=== PATIENT | male | born 1990 | race Caucasian/White ===

== ENCOUNTER → 2019-10-09 11:06 | Outpatient (BNVA) | payer MEDICARE, MEDICAID, SELFPAY | PROVIDERS: Family Provider Nurse Practitioner Family; PCP Nurse Practitioner Family; Visit Provider Nurse Practitioner Family | DX: E78.5 Hyperlipidemia, unspecified (principal); K64.9 Unspecified hemorrhoids | CPT/HCPCS: 80061 ==

== ENCOUNTER → 2019-10-11 10:42 | Outpatient (BNVA) | payer MEDICARE, MEDICAID, SELFPAY | PROVIDERS: Family Provider Nurse Practitioner Family; PCP Nurse Practitioner Family; Visit Provider Nurse Practitioner Psychiatric/Mental Health | DX: F63.81 Intermittent explosive disorder (principal); F79 Unspecified intellectual disabilities; F17.200 Nicotine dependence, unspecified, uncomplicated | CPT/HCPCS: 99214; 99215 ==

== ENCOUNTER → 2019-12-31 08:11 | Outpatient (BNVA) | payer MEDICARE, MEDICAID, SELFPAY | PROVIDERS: Family Provider Nurse Practitioner Family; Visit Provider Nurse Practitioner Psychiatric/Mental Health | DX: F63.81 Intermittent explosive disorder (principal); F79 Unspecified intellectual disabilities; F17.200 Nicotine dependence, unspecified, uncomplicated | CPT/HCPCS: 99212 ==

== ENCOUNTER → 2020-02-06 08:53 | Outpatient (BNVA) | payer MEDICARE, MEDICAID, SELFPAY | PROVIDERS: Family Provider Nurse Practitioner Family; PCP Nurse Practitioner Family; Visit Provider Specialist | DX: G40.309 Generalized idiopathic epilepsy and epileptic syndromes, not intractable, without status epilepticus (principal); F17.210 Nicotine dependence, cigarettes, uncomplicated | CPT/HCPCS: 99213 ==

== ENCOUNTER → 2020-04-07 08:01 | Outpatient (BNVA) | payer MEDICARE, MEDICAID, SELFPAY | PROVIDERS: Family Provider Nurse Practitioner Family; PCP Nurse Practitioner Family; Visit Provider Nurse Practitioner Psychiatric/Mental Health | DX: F79 Unspecified intellectual disabilities (principal); F63.81 Intermittent explosive disorder; F17.200 Nicotine dependence, unspecified, uncomplicated | CPT/HCPCS: 99212 ==

== ENCOUNTER → 2020-04-11 10:49 | Outpatient (BNVA) | payer MEDICARE, MEDICAID, SELFPAY | PROVIDERS: Family Provider Nurse Practitioner Family; PCP Nurse Practitioner Family; Visit Provider Nurse Practitioner | DX: E78.5 Hyperlipidemia, unspecified (principal) | CPT/HCPCS: 80053; 80061 ==

== ENCOUNTER → 2020-06-03 09:29 | Outpatient (BNVA) | payer MEDICARE, MEDICAID, SELFPAY | PROVIDERS: Family Provider Nurse Practitioner Family; PCP Nurse Practitioner Family; Visit Provider Nurse Practitioner Psychiatric/Mental Health | DX: F63.81 Intermittent explosive disorder (principal); F79 Unspecified intellectual disabilities; F17.200 Nicotine dependence, unspecified, uncomplicated | CPT/HCPCS: 99212 ==

== ENCOUNTER → 2020-06-11 11:54 | Outpatient (BNVA) | payer MEDICARE, MEDICAID, SELFPAY | PROVIDERS: Family Provider Nurse Practitioner Family; PCP Nurse Practitioner Family; Visit Provider Nurse Practitioner | DX: R76.11 Nonspecific reaction to tuberculin skin test without active tuberculosis (principal); E78.5 Hyperlipidemia, unspecified; Z11.3 Encounter for screening for infections with a predominantly sexual mode of transmission | CPT/HCPCS: 71046; 80053; 81000; 85025; 86592 ==

== ENCOUNTER → 2020-08-05 07:43 | Outpatient (BNVA) | payer MEDICARE, MEDICAID, SELFPAY | PROVIDERS: Family Provider Nurse Practitioner Family; PCP Nurse Practitioner Family; Visit Provider Nurse Practitioner Psychiatric/Mental Health | DX: F63.81 Intermittent explosive disorder (principal); F79 Unspecified intellectual disabilities | CPT/HCPCS: G0463 ==

== ENCOUNTER 2020-10-13 00:58 | Day surgery (SDC) | payer MEDICARE, MEDICAID, SELFPAY ==
[2020-10-13] VITALS (11 sets, daily range): BP systolic 106–136; BP diastolic 63–82; PULSE 62–86; RESP 14–23; TEMP 36.3–36.6; O2SAT 95–100; BMI 24.4
--- NOTE | 2020-10-13 01:51 | XRR_ITS ---
PROCEDURE INFORMATION: Exam: XR Abdomen, 1 View Exam date and time: 10/13/2020 1:59 AM Age: 30 years old Clinical indication: Other: Rectal foreign body; Patient HX: PT slipped and fell and something went up his rectum TECHNIQUE: Imaging protocol: XR of the abdomen. Views: Frontal supine view of the abdomen. 1 View. COMPARISON: No relevant prior studies available. FINDINGS: Gastrointestinal tract: No dilated bowel loops identified to suggest obstruction. There is a cylindrical radiolucent foreign body projecting over the sacrum just left of midline measuring roughly 12.9 cm in length and 3.1 cm transversely. This is compatible with a rectal foreign body. Bones/joints: Visualized bones are unremarkable. XR/XR KUB portable [id number] IMPRESSION: 1. There is a cylindrical radiolucent foreign body projecting over the sacrum just left of midline. This is compatible with a rectal foreign body.
--- NOTE | 2020-10-13 02:37 | PC.NURSE ---
Provider at bedside
[2020-10-13] MEDS: lactated ringers 1,000 ML 100 ML IV (02:40)
[2020-10-13 02:42] LABS: Basophils # 0.1 10^3/uL (0.0-0.1); Basophils % 0.3 %; Eosinophils # 0.1 10^3/uL (0.0-0.8); Eosinophils % 0.4 %; Hemoglobin 14.6 g/dL (11.7-16.6); Lymphocytes # 2.1 10^3/uL (0.8-4.8); Lymphocytes % 11.5 %; Mean Corpuscular HGB Conc 33.2 g/dL (30.0-36.0); Mean Corpuscular Hemoglobin 32.4 pg (28.0-34.0); Mean Corpuscular Volume 97.6 fL (80-94); Mean Platelet Volume 10.4 fL (7.4-10.4); Monocytes # 1.1 10^3/uL (0.2-0.9); Neutrophils # 15.01 10^3/uL (1.8-7.7); Neutrophils % 81.4 %; Nucleated Red Blood Cells % 0 %; Platelet Count 215 10^3/cmm (130-400); Red Blood Count 4.51 10^6/uL (4.1-5.3); Red Cell Distribution Width 12.6 % (12.1-15.1); White Blood Count 18.4 10^3/uL (4.0-10.0)
[2020-10-13 03:05] LABS: Alanine Aminotransferase 37 U/L (0-41); Albumin Level 4.1 g/dL (3.5-5.2); Alkaline Phosphatase 88 IU/L (40-130); Anion Gap 14.8 (5-19); Aspartate Amino Transferase 40 U/L (0-40); Blood Urea Nitrogen 12 mg/dL (6-20); Calcium 9.3 mg/dL (8.5-10.5); Carbon Dioxide 23 mmol/L (22-29); Chloride 104 mmol/L (98-107); Globulin 2.2 g/dL (1.3-4.6); Glomerular Filtration Rate 87.2 mL/min (90-130); Glucose 112 mg/dL (65-115); Osmolality Calculated 287 mOsm/kg (285-295); Potassium 3.8 mmol/L (3.5-5.1); Sodium 138 mmol/L (136-145); Total Bilirubin 0.2 mg/dL (0.15-1.2); Total Protein 6.3 g/dL (6.6-8.7)
--- NOTE | 2020-10-13 03:45 | PC.NURSE ---
pt aware of waiting on surgery this AM for removal of FB in rectum
--- NOTE | 2020-10-13 03:52 | ED_ITS ---
HPI - General Adult General: Chief complaint: General Medical Stated complaint: foreign object in rectum Time Seen by Provider: 10/13/20 01:26 History of Present Illness: HPI narrative: 30-year-old male who was apparently walking across his home naked this evening. He slipped and fell and something ended up in my bomb . He states that it may have been a toy of one of the children living at the home. He complains of rectal pain. No overt belly pain. No vomiting. No rectal bleeding. Onset (ago): hour(s) Location: buttocks Radiation: non-radiation Severity: moderate Quality: aching Pain Consistency: constant Relieving factors: none Exacerbating factors: none Associated symptoms: Deny chest pain, cough, dyspnea, fevers/chills, nausea, palpitations or vomiting Review of Systems Const: Denies: fever(s) or chills Card: Denies: chest pain or palpitations Resp: Denies: dyspnea, productive cough or non-productive cough GI: Denies: nausea or vomiting : Denies: flank pain or difficulty urinating Neuro: Denies: sensory changes PFSH ED PFSH: Medical History (Updated 10/13/20 @ 04:02 by Tereso Silveira DO) Acid reflux Bipolar affective, mixed Dyslipidemia Encounter for herb and vitamin supplement management Environmental and seasonal allergies Generalized epilepsy GERD (gastroesophageal reflux disease) Hemorrhoids Nonspecific reaction to tuberculin skin test without active tuberculosis Seborrheic dermatitis of scalp Surgical History Status post colonoscopy Family History Denies family history of Anesthesia complication Bleeding disorder Social History Smoking and tobacco status: current every day smoker cigarettes Packs smoked per day: 1 Years cigarettes smoked: 20 Second hand smoke exposure: Yes Smoking risk assessment/counseling performed?: Yes Alcohol intake: never Desire information about alcohol rehabilitation?: No Counseling given: No Desire information about substance/drug rehabilitation?: No Counseling given: No Adopted: Yes Caregiver/support person: Yes Lives independently: No Household members: family and caregiver Housing: House Marital status: Single Number of children: 0 Highest education level completed: 9th Grade Education level details: Till 9th Grade Current occupational status: unemployed Pets and animals: Yes History of recent travel: No Current gender identity: Male Physical Exam Const: COMMON NORMALS: no acute distress, average body habitus and patient oriented x3 Chest: COMMONS NORMALS: normal inspection of the chest Resp: COMMON NORMALS: normal respiratory effort and No use of accessory muscles Cardio: COMMON NORMALS: regular rate and regular rhythm RATE: regular rate RHYTHM: regular rhythm GI: COMMON NORMALS: Normal to inspection, nondistended, normoactive bowel sounds present, Soft to palpation and non-tender PALPATION: Yes Soft to palpation RECTAL EXAM: Yes visual inspection normal and Yes abnormal sphincter tone decreased OTHER: NO foreign body identified on rectal Neuro: COMMON NORMALS: patient oriented x3 Course Consultations: Consultation #1: Ashutosh Vital Signs: Vital signs: Vital Signs Temperature 97.5 F L 10/13/20 01:08 Pulse Rate 62 10/13/20 03:48 Respiratory Rate 18 10/13/20 03:48 Blood Pressure 106/63 10/13/20 03:48 Pulse Oximetry 100 10/13/20 03:48 MDM - General Adult MDM Narrative: Medical decision making narrative: 30-year-old male with a rectal foreign body. X-ray reveals an nonmetallic foreign body present. Not palpable on digital rectal exam. His white blood cell count is elevated at 18.4. His belly is nontender at this point. His other labs are benign. Spoke with surgery on-call. He will take the patient to surgery in a couple of hours. Lab Data: Labs: Lab Results 10/13/20 10/13/20 Range/Units 02:25 02:25 WBC 18.4 H (4.0-10.0) 10^3/ uL RBC 4.51 (4.1-5.3) 10^6/u L Hgb 14.6 (11.7-16.6) g/dL Hct 44.0 (42.0-52.0) % MCV 97.6 H (80-94) fL MCH 32.4 (28.0-34.0) pg MCHC 33.2 (30.0-36.0) g/dL RDW 12.6 (12.1-15.1) % Plt Count 215 (130-400) 10^3/c mm MPV 10.4 (7.4-10.4) fL Neut % (Auto) 81.4 % Lymph % (Auto) 11.5 % [place] % (Auto) 6.0 % Eos % (Auto) 0.4 % Baso % (Auto) 0.3 % Neut # (Auto) 15.01 H (1.8-7.7) 10^3/u L Lymph # (Auto) 2.1 (0.8-4.8) 10^3/u L Andrews # (Auto) 1.1 H (0.2-0.9) 10^3/u L Eos # (Auto) 0.1 (0.0-0.8) 10^3/u L Baso # (Auto) 0.1 (0.0-0.1) 10^3/u L Nucleated RBC % (a uto) 0 % Nucleated RBCs # 0.0 /100WBC Sodium 138 (136-145) mmol/L Potassium 3.8 (3.5-5.1) mmol/L Chloride 104 (98-107) mmol/L Carbon Dioxide 23 (22-29) mmol/L Anion Gap 14.8 (5-19) BUN 12 (6-20) mg/dL Creatinine 1.0 (0.7-1.2) mg/dL GFR Calculation 87.2 L (90-130) mL/min Glucose 112 (65-115) mg/dL Calculated Osmolal ity 287 (285-295) mOsm/k g Calcium 9.3 (8.5-10.5) mg/dL Total Bilirubin 0.2 (0.15-1.2) mg/dL AST 40 (0-40) U/L ALT 37 (0-41) U/L Alkaline Phosphata se 88 (40-130) IU/L Total Protein 6.3 L (6.6-8.7) g/dL Albumin 4.1 (3.5-5.2) g/dL Globulin 2.2 (1.3-4.6) g/dL Discharge Plan Discharge Patient Disposition: Placed in Observation Clinical Impression: Foreign body anus/rectum Qualifiers: Encounter type: initial encounter Qualified Code(s): T18.5XXA - Foreign body in anus and rectum, initial encounter Coding Level of Care Code 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
--- NOTE | 2020-10-13 05:50 | ANES.PREANE2 ---
Pre-Anesthetic Assessment Pre-Anesthetic Assessment: Height/Weight: Height 1.83 m Weight 81.647 kg Temp Pulse Resp BP Pulse Ox 97.5 F L 66 23 H 118/73 96 10/13/20 01:08 10/13/20 05:43 10/13/20 05:43 10/13/20 05:43 10/13/20 05:43 Preop Diagnosis: foreign body rectum Proposed Procedure: Operation Date: 10/13/20 06:15 Proposed Procedures p Foreign Body Removal(Not Applicable) - Jerzy Boykin MD Familial anesthetic complications: No problems Last intake: Intake Last Liquid Date 10/13/20 Last Liquid Time 18:00 Last Solid Date 10/12/20 Last Solid Time 18:00 Social: Social History: Tobacco Exam: Pre-Anes Outpt Exam: alert, oriented x 3, clear to auscultation bilaterally and regular rate & rhythm Airway: Cervical ROM: WNL MP: 3 Dentition: Other (missing) GI: GI: GERD Neuropsych: Neuropsych: Seizure Comments: Last seizure years ago - epilepsy. Took medicine yesterday at 7 pm Anesthetic Plan: ASA status: 2E Anesthesia: General Risk of > 500 ml blood loss (7ml/kg in children): No Meds/Allergies Current Medications: Current Medications Generic Name Dose Route Start Last Admin Trade Name Freq PRN Reason Stop Dose Admin Lactated Ringer's 1,000 mls @ 100 m ls/hr 10/13/20 02:15 10/13/20 02:40 Lactated Ringers IV 100 mls/hr .Q10H REJI Administration PFSH Anesthesia PFSH: Medical History (Updated 10/13/20 @ 04:02 by Tereso Silveira DO) Acid reflux Bipolar affective, mixed Dyslipidemia Encounter for herb and vitamin supplement management Environmental and seasonal allergies Generalized epilepsy GERD (gastroesophageal reflux disease) Hemorrhoids Nonspecific reaction to tuberculin skin test without active tuberculosis Seborrheic dermatitis of scalp Surgical History Status post colonoscopy Family History Denies family history of Anesthesia complication Bleeding disorder Social History Smoking and tobacco status: current every day smoker cigarettes Packs smoked per day: 1 Years cigarettes smoked: 20 Second hand smoke exposure: Yes Smoking risk assessment/counseling performed?: Yes Alcohol intake: never Desire information about alcohol rehabilitation?: No Counseling given: No Desire information about substance/drug rehabilitation?: No Counseling given: No Adopted: Yes Caregiver/support person: Yes Lives independently: No Household members: family and caregiver Housing: House Marital status: Single Number of children: 0 Highest education level completed: 9th Grade Education level details: Till 9th Grade Current occupational status: unemployed Pets and animals: Yes History of recent travel: No Current gender identity: Male Data Anesthesia CBC & Chem 7: 10/13/20 02:25 10/13/20 02:25 Other Labs: Laboratory Results - last 48 hr 10/13/20 10/13/20 02:25 02:25 WBC 18.4 H RBC 4.51 Hgb 14.6 Hct 44.0 MCV 97.6 H MCH 32.4 MCHC 33.2 RDW 12.6 Plt Count 215 MPV 10.4 Neut % (Auto) 81.4 Lymph % (Auto) 11.5 [place] % (Auto) 6.0 Eos % (Auto) 0.4 Baso % (Auto) 0.3 Neut # (Auto) 15.01 H Lymph # (Auto) 2.1 [place] # (Auto) 1.1 H Eos # (Auto) 0.1 Baso # (Auto) 0.1 Nucleated RBC % (auto) 0 Nucleated RBCs # 0.0 Sodium 138 Potassium 3.8 Chloride 104 Carbon Dioxide 23 Anion Gap 14.8 BUN 12 Creatinine 1.0 GFR Calculation 87.2 L Glucose 112 Calculated Osmolality 287 Calcium 9.3 Total Bilirubin 0.2 AST 40 ALT 37 Alkaline Phosphatase 88 Total Protein 6.3 L Albumin 4.1 Globulin 2.2 Cardiac Studies: No Data to Display
[2020-10-13] MEDS: sodium chloride 0.9% 1,000 ML 30 ML IV (06:11)
--- NOTE | 2020-10-13 06:20 | PM.HP ---
Providers/Chief Complaint Primary Care Provider: JORGE Hightower Chief Complaint: foreign object in rectum History of Present Illness Marc Romero is a 30 year old male who presented to the ER last night stating that he slipped and fell at his house at home and landed on one of the toys and subsequently developed severe rectal pain. Patient denies any abdominal pain, bleeding per rectum. The pain is now improved, does not radiate, no aggravating or relieving factors. An attempt was made in the ER to remove the foreign body which was unsuccessful. Review of Systems General: Reports: 10 or more systems reviewed and unremarkable except in HPI and below Medications/Allergies Home Medications Medication Instructions Recorded Confirmed Last Taken Type acetaminophen 500 mg tablet 1,000 mg PO Q6H PRN 10/09/19 07/04/20 Unknown History hydrocortisone 2.5 % topical cream 1 applic TOPICAL DAILY PRN gm 10/09/19 07/04/20 Unknown History ibuprofen 400 mg tablet 400 mg PO Q6H PRN 10/09/19 07/04/20 Unknown History lactulose 10 gram/15 mL (15 mL) 10 gm PO DAILY PRN #750 ml 02/12/20 07/04/20 Unknown Rx oral solution docusate sodium 100 mg capsule 100 mg PO BID #60 cap 06/11/20 07/04/20 Unknown Rx famotidine 20 mg tablet 20 mg PO BID #60 tab 06/11/20 07/04/20 Unknown Rx fluticasone propionate 50 1 spray INTRANASAL DAILY PRN #15.8 06/11/20 07/04/20 Unknown Rx mcg/actuation nasal ml spray,suspension ketoconazole 2 % shampoo 1 applic TOPICAL Q14D PRN #120 ml 06/11/20 07/04/20 Unknown Rx loratadine 10 mg tablet 10 mg PO DAILY #30 tab 06/11/20 07/04/20 Unknown Rx pravastatin 20 mg tablet 20 mg PO DAILY #30 tab 06/11/20 07/04/20 Unknown Rx multivitamin 1 tab PO QAM #30 tab 06/28/20 07/04/20 Unknown Rx doxycycline hyclate 100 mg capsule 100 mg PO BID #10 cap 07/04/20 07/04/20 Unknown Rx benztropine 1 mg tablet 1 mg PO BID #60 tab 08/05/20 08/05/20 Unknown Rx risperidone 1 mg tablet 1 mg PO .Every morning #30 tab 08/05/20 08/05/20 Unknown Rx risperidone 2 mg tablet 2 mg PO .Nightly #30 tab 08/05/20 08/05/20 Unknown Rx trazodone 50 mg tablet 50 mg PO .hs #30 tab 08/05/20 08/05/20 Unknown Rx lacosamide 200 mg tablet 200 mg PO BID #60 tab 08/07/20 Unknown Rx brompheniramine-phenylephrine 1 5 ml PO Q6H PRN #118 ml 10/05/20 Unknown Rx mg-2.5 mg/5 mL oral solution Allergies Allergy/AdvReac Type Severity Reaction Status Date / Time adhesive tape Allergy ALGY-Rash Verified 10/13/20 01:14 aripiprazole [From Abilify] Allergy ALGY-Hives Verified 10/13/20 01:14 PFSH Acute PFSH: Medical History (Updated 10/13/20 @ 06:21 by Jerzy Boykin MD) Acid reflux Bipolar affective, mixed Dyslipidemia Generalized epilepsy GERD (gastroesophageal reflux disease) Hemorrhoids Seborrheic dermatitis of scalp Surgical History Status post colonoscopy Family History Denies family history of Anesthesia complication Bleeding disorder Social History Smoking and tobacco status: current every day smoker cigarettes Packs smoked per day: 1 Years cigarettes smoked: 20 Second hand smoke exposure: Yes Smoking risk assessment/counseling performed?: Yes Alcohol intake: never Desire information about alcohol rehabilitation?: No Counseling given: No Desire information about substance/drug rehabilitation?: No Counseling given: No Adopted: Yes Caregiver/support person: Yes Lives independently: No Household members: family and caregiver Housing: House Marital status: Single Number of children: 0 Highest education level completed: 9th Grade Education level details: Till 9th Grade Current occupational status: unemployed Pets and animals: Yes History of recent travel: No Current gender identity: Male Vitals/I&O/Wt Last Vital Signs Temp 98 F 10/13/20 05:55 Pulse 66 10/13/20 05:55 Resp 18 10/13/20 05:55 BP 135/82 10/13/20 05:55 Pulse Ox 99 10/13/20 05:55 10/12/20 10/12/20 10/13/20 14:59 22:59 06:59 Intake Total 400 / 400 Balance 400 / 400 Weight last 48 hrs Weight 180 lb Physical Exam Narrative: EXAM NARRATIVE: HEENT: Normocephalic Eye: Sclera /conjunctiva normal Abdomen: Soft to palpation Neurological: Oriented to place person and time Skin: Intact, no lesions appreciated on gross exam Data : 10/13/20 02:25 10/13/20 02:25 A&P Assessment and plan (1) Foreign body anus/rectum: 1-year-old male with a foreign body per rectum, patient is currently hemodynamically stable and noted to peritonitis Plan for exam under anesthesia for removal of foreign body, possible laparotomy, possible ostomy Procedure, risks, benefits and alternatives have been discussed with the patient who wishes to proceed with surgery. 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
--- NOTE | 2020-10-13 06:40 | PM.OP ---
Operative Report Date of procedure: October 13, 2020 Pre-op Diagnosis: foreign body rectum Post-op Diagnosis: 15 cm plastic foreign body Procedure Done: Removal of foreign body from rectum Pathology: none sent Surgeon: Jerzy Boykin Anesthesia: General Condition: stable Disposition: PACU Procedure: The patient was taken to the operating room and intubated under general anesthesia and placed in the lithotomy position. On digital rectal exam, the foreign body could be palpated and suprapubic pressure was applied and the 15 cm long foreign body was removed without any difficulty. There is no evidence of bleeding noted. The patient was extubated and transferred to recovery room in stable condition.
--- NOTE | 2020-10-13 08:14 | SUR.PHASEI ---
[id number]onda Nielsen, court appointed guardian, notified of urgent procedure.
--- NOTE | 2020-10-13 15:39 | ANE.PACU2 ---
Inpatient post-anesthesia follow up: Airway intact: Yes Vital signs: Temperature 97.8 F Pulse Rate [Monito r] 86 Pulse Rate 77 Respiratory Rate 17 Blood Pressure [Le ft Arm] 124/73 Blood Pressure 124/77 Pulse Oximetry 97 Oxygen Delivery Me thod Room Air Oxygen Flow Rate 8 Fraction of Inspir ed Oxygen Hydration adequate: Yes Nausea and vomiting: No Pain level: 2 Mental status: Baseline
== END 2020-10-13 08:30 | disposition home or self-care (01) ==
LOC: ER 05:48 → OR 05:49
PROVIDERS: Emergency Provider Emergency Medicine; PCP Nurse Practitioner Family; Visit Provider Surgery
PROC: (CPT 45999; principal; 2020-10-13 06:15)
DX: T18.5XXA Foreign body in anus and rectum, initial encounter (principal); K21.9 Gastro-esophageal reflux disease without esophagitis; E78.5 Hyperlipidemia, unspecified; F31.9 Bipolar disorder, unspecified
CPT/HCPCS: 45999; 12345; 74018; 80053; 85025; 99283; J1100; J2250; J2405; J2704; J3010; J7030

== ENCOUNTER → 2020-10-30 10:12 | Outpatient (BNVA) | payer MEDICARE, MEDICAID, SELFPAY | PROVIDERS: Family Provider Nurse Practitioner Family; PCP Nurse Practitioner Family; Visit Provider Nurse Practitioner Psychiatric/Mental Health | DX: F63.81 Intermittent explosive disorder (principal); F79 Unspecified intellectual disabilities | CPT/HCPCS: 99213 ==

== ENCOUNTER → 2020-11-25 16:55 | Outpatient (BNVA) | payer MEDICARE, MEDICAID, SELFPAY | PROVIDERS: Family Provider Nurse Practitioner Family; PCP Nurse Practitioner Family; Visit Provider Nurse Practitioner | DX: E78.5 Hyperlipidemia, unspecified (principal); J30.89 Other allergic rhinitis; L21.9 Seborrheic dermatitis, unspecified; K21.9 Gastro-esophageal reflux disease without esophagitis; K64.9 Unspecified hemorrhoids | CPT/HCPCS: 80053; 80061; 85025 ==

== ENCOUNTER → 2020-12-08 07:39 | Outpatient (BNVA) | payer MEDICARE, MEDICAID, SELFPAY | PROVIDERS: Family Provider Nurse Practitioner Family; PCP Nurse Practitioner Family; Visit Provider Nurse Practitioner Psychiatric/Mental Health | DX: F63.81 Intermittent explosive disorder (principal); F79 Unspecified intellectual disabilities | CPT/HCPCS: 99213 ==

== ENCOUNTER → 2021-02-02 09:44 | Outpatient (BNVA) | payer MEDICARE, MEDICAID, SELFPAY | PROVIDERS: Family Provider Nurse Practitioner Family; PCP Nurse Practitioner Family; Visit Provider Specialist | DX: G40.309 Generalized idiopathic epilepsy and epileptic syndromes, not intractable, without status epilepticus (principal); F63.81 Intermittent explosive disorder; F79 Unspecified intellectual disabilities; F17.210 Nicotine dependence, cigarettes, uncomplicated | CPT/HCPCS: 99213 ==

== ENCOUNTER → 2021-03-02 08:32 | Outpatient (BNVA) | payer MEDICARE, MEDICAID, SELFPAY | PROVIDERS: Family Provider Nurse Practitioner Family; PCP Nurse Practitioner Family; Visit Provider Nurse Practitioner Psychiatric/Mental Health | DX: F63.81 Intermittent explosive disorder (principal); G40.309 Generalized idiopathic epilepsy and epileptic syndromes, not intractable, without status epilepticus; F17.200 Nicotine dependence, unspecified, uncomplicated; F79 Unspecified intellectual disabilities | CPT/HCPCS: 99213 ==

== ENCOUNTER 2021-04-06 16:18 | Emergency (ER) | payer MEDICARE, MEDICAID, SELFPAY ==
[2021-04-06 16:35] VITALS: BP 122/75; PULSE 91; RESP 16; TEMP 36.9; O2SAT 98; BMI 24.4
--- NOTE | 2021-04-06 19:25 | ED_ITS ---
HPI - Wound/Laceration General: Chief Complaint: Wound/Laceration Stated Complaint: LACERATION, CUT WITH KNIFE Time Seen by Provider: 04/06/21 19:20 History of Present Illness: HPI narrative: Patient is a 30-year-old male who comes to the ED with a laceration to right wrist. Patient says he was cutting down some tree limbs and accidentally cut through the limb and the knife cut his right wrist. He was seen first at [facility] and they cleaned out wound and sent him here. Patient said he is up-to-date on his tetanus. Associated symptoms: Denies chills, fever(s), nausea or vomiting Review of Systems Const: Denies: fever(s), chills or fatigue Eyes: Denies: change in vision or eye discomfort ENMT: Denies: throat pain, odynophagia, nasal discharge or nasal congestion Card: Denies: chest pain, palpitations, edema, swelling of feet/ankles, dyspnea on exertion or orthopnea Resp: Denies: dyspnea, productive cough or non-productive cough GI: Denies: abdominal pain, nausea, vomiting, diarrhea, constipation or hematochezia : Denies: flank pain, difficulty urinating, dysuria or hematuria Musc: Denies: neck pain, back pain or extremity swelling Skin/Breast: Reports: new lesions (Laceration to right wrist.); Denies: rash Neuro: Denies: headache(s), numbness in extremities or weakness in extremities PFS ED PFSH: Medical History Acid reflux Bipolar affective, mixed Dyslipidemia Generalized epilepsy GERD (gastroesophageal reflux disease) H/O retained foreign body fully removed (10/13/20) FB rectum Hemorrhoids Seborrheic dermatitis of scalp Surgical History Status post colonoscopy Family History Denies family history of Anesthesia complication Bleeding disorder Social History Smoking and tobacco status: current every day smoker cigarettes Packs smoked per day: 1 Years cigarettes smoked: 20 Second hand smoke exposure: Yes Smoking risk assessment/counseling performed?: Yes Alcohol intake: never Desire information about alcohol rehabilitation?: No Counseling given: No Desire information about substance/drug rehabilitation?: No Counseling given: No Adopted: Yes Caregiver/support person: Yes Lives independently: No Household members: family and caregiver Housing: House Marital status: Single Number of children: 0 Highest education level completed: 9th Grade Education level details: Till 9th Grade Current occupational status: unemployed Pets and animals: Yes History of recent travel: No Current gender identity: Male Physical Exam Const: COMMON NORMALS: no acute distress, patient oriented x3 and alert GENERAL APPEARANCE: cooperative and comfortable HENMT: COMMON NORMALS: normocephalic HEAD & SCALP: normocephalic MOUTH: Normal oral and palatal mucosa present THROAT: posterior oropharynx normal and uvula midline Neck/C-Spine: COMMON NORMALS: supple GENERAL: Yes normal visual inspection Resp: COMMON NORMALS: normal respiratory effort, No retractions, No use of accessory muscles and clear to auscultation bilaterally AUSCULTATION: clear to auscultation bilaterally Cardio: COMMON NORMALS: regular rate, regular rhythm, S1 normal heart sound present, S2 normal heart sound present, No gallops present (Cardio), No clicks present (Cardio), No murmurs present (Cardio) and Peripheral pulses 2+ throughout RATE: regular rate RHYTHM: regular rhythm HEART SOUNDS: S1 normal heart sound present and S2 normal heart sound present PERIPHERAL PULSES: Peripheral pulses 2+ throughout GI: COMMON NORMALS: Normal to inspection, nondistended, normoactive bowel sounds present, Soft to palpation, non-tender and no masses PALPATION: Yes Soft to palpation : COMMON NORMALS: Yes no CVA tenderness BLADDER/KIDNEY EXAM: Yes no CVA tenderness Back/Pelvis: COMMON NORMALS: no CVA tenderness Extremity: COMMON NORMALS: full ROM NARRATIVE EXTREMITY EXAM: Anterior aspect of right wrist?3 cm superficial laceration and is in a V shape. No active bleeding. No foreign body or contaminants seen. No erythema or purulent drainage noted. Patient has full motion in right fingers, hand and wrist. Neurovascular intact. GENERAL: Yes normal exam except as noted Neuro: COMMON NORMALS: patient oriented x3 and moves all extremities SENSORIUM/ORIENTATION: Yes alert Skin: NARRATIVE SKIN EXAM: 3 cm superficial laceration on anterior aspect of right wrist. It is V-shaped and there is no active bleeding or foreign body or contaminants seen. GENERAL SKIN EXAM: dry skin Procedures Laceration Laceration 1: Site: hand (palm and wrist) Side (If applicable): right Size (cm): 3 Description: irregular (v shaped) and clean Depth: simple, single layer Local Anesthetic: lidocaine 1% and with epi Amount of anesthesia used (mL): 10 Pre-repair: irrigated extensively (With normal saline and skin cleaned with alcohol swab.) Skin layer closed with: nylon Size (cm): 4-0 Number of sutures: 14 Technique: simple, interrupted Course Vital Signs: Vital signs: Vital Signs Temperature 98.4 F 04/06/21 16:35 Pulse Rate 74 04/06/21 20:58 Respiratory Rate 16 04/06/21 20:58 Blood Pressure 124/88 04/06/21 20:58 Pulse Oximetry 99 04/06/21 20:58 MDM - Wound/Laceration MDM Narrative: Medical decision making narrative: Patient 30-year-old male comes to the ED with laceration to right wrist. Patient was first seen at his [facility] and they cleaned out laceration and sent him here to the ED for further evaluation. Patient is up-to-date on his tetanus. Laceration was caused by him cutting down a branch and the knife slipped off the branch and cut his right wrist. He has approximately 3 cm laceration that is V-shaped on the anterior aspect of right wrist. He has full range of motion and wrist, hand and fingers. Neurovascular tact. Laceration was irrigated extensively with normal saline and skin was cleaned with alcohol swab. X-ray of right wrist showed no acute findings or foreign bodies noted. Local lidocaine 1% with epi was used and 14 sutures were placed to close laceration. Patient was put on a prophylactic dose of cephalexin and discharged home. He was told to have his sutures reevaluated for removal in about 10 days. Patient was instructed on laceration/suture care. Wound care return ED precautions given. Patient understood and agreed with plan. Imaging Data^: Xray Ortho: Attestation: I personally reviewed and interpreted this imaging study as follows: Radiologist's impression: [address] [address] XRay Report Signed Patient: Marc Romero Unit #: [id number] : 1990 Age/Sex: 30 / M ADM Date: 04/06/21 Loc: ER Room/Bed: Attending Dr: Ordering Provider/Ordering MD: Edgar Fine Date of Service: 04/06/21 Procedure(s): XR wrist RT min 3V* 87152 Accession Number(s): [id number] Report Number: [id number] PROCEDURE INFORMATION: Exam: XR Right Wrist Exam date and time: 04/06/2021 7:25 PM Age: 30 years old Clinical indication: Injury or trauma; Injury date: 04/06/2021; Injury details: Lac to right wrist w/ knife while cutting limbs; Patient HX: Anterior right wrist laceration; Additional info: Laceration to wrist TECHNIQUE: Imaging protocol: XR Right wrist. Views: 3 or more views. COMPARISON: No relevant prior studies available. FINDINGS: Bones/joints: Normal. Soft tissues: Normal. XR/XR wrist RT min 3V* 18615 IMPRESSION: No acute findings. Dictated By: Roberth Zaragoza Signed By: Roberth Zaragoza Signed Date/Time: 04/06/212052 DD/ 51 Discharge Plan Discharge Patient Disposition: Home Clinical Impression: Laceration Condition: Stable Prescriptions: New cephalexin 500 mg capsule 500 mg PO Q6H 4 Days Qty: 16 RF: 0 No Action acetaminophen 500 mg tablet 1,000 mg PO Q6H PRNRF: 0 Vimpat 200 mg tablet 200 mg PO BID Qty: 60 RF: 5 pravastatin 20 mg tablet 20 mg PO DAILY Qty: 30 RF: 5 loratadine 10 mg tablet 10 mg PO DAILY Qty: 30 RF: 5 ketoconazole 2 % shampoo 1 applic TOPICAL Q14D PRN (Reason: itchy dry skin) Qty: 120 RF: 5 fluticasone propionate 50 mcg/actuation spray,suspension 1 spray INTRANASAL DAILY PRN (Reason: nasal congestion) Qty: 15.8 RF: 5 famotidine 20 mg tablet 20 mg PO BID Qty: 60 RF: 5 carbamide peroxide [Debrox] 6.5 % drops 5 drp otic (ear) DAILY Qty: 30 RF: 0 benztropine 1 mg tablet 1 mg PO BID Qty: 60 RF: 2 lactulose 10 gram/15 mL (15 mL) solution 10 gm PO DAILY PRN (Reason: constipation) Qty: 750 RF: 3 multivitamin [Tab-A-Justen] Tablet 1 tab PO QAM Qty: 30 RF: 11 Dimetapp Cold-Allergy (PE) 1-2.5 mg/5 mL solution 5 ml PO Q6H PRN (Reason: nasal congestion) Qty: 118 RF: 5 docusate sodium [DOK] 100 mg capsule 100 mg PO DAILY Qty: 30 RF: 3 risperidone 1 mg tablet 1 mg PO BID Qty: 90 RF: 1 ibuprofen 400 mg tablet See Rx Instructions .ROUTE .COMPLEX Qty: 56 RF: 0 hydrocortisone 2.5 % cream 1 applic TOPICAL DAILY PRN (Reason: apply for rectal pain) Qty: 30 RF: 2 clindamycin phosphate 1 % swab 1 applic topical BID Qty: 60 RF: 5 trazodone 50 mg tablet 50 mg PO DAILY Qty: 30 RF: 2 Discharge Orders: Discharge ED (Routine); Ordered 04/06/21 Ordered By: Edgar Fine Referrals: Eduarda Uriarte FNP-C [Primary Care Provider] - Discharge Diet: Regular Discharge Activity: Increase activity as tolerated and Limit activity as instructed Patient Instructions: Suture Care (ED), Laceration (ED) Activity Restrictions/Additional Instructions: Take full course of antibiotics as prescribed. Keep laceration site clean and dry for the next 48 hours. Then after that you can clean and re-bandage daily. Watch for signs of infection such as redness, warmth, increased tenderness and puslike drainage. If you see the signs of infection return to the ED, urgent care or PCP for reevaluation. call your PCP to schedule a follow-up appointment for reevaluation and suture removal in about 10 days. Continue taking all home meds. Follow discharge plans as discussed. You can return to the ED if symptoms worsen. 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
[2021-04-06] MEDS: cephALEXin 500 mg Capsule PO (19:36)
[2021-04-06 20:58] VITALS: BP 124/88; PULSE 74; RESP 16; O2SAT 99
== END 2021-04-06 20:59 | disposition home or self-care (01) ==
PROVIDERS: Emergency Provider Physician Assistant; PCP Nurse Practitioner Family
DX: S61.511A Laceration without foreign body of right wrist, initial encounter (principal); E78.5 Hyperlipidemia, unspecified; F17.210 Nicotine dependence, cigarettes, uncomplicated; W26.0XXA Contact with knife, initial encounter
CPT/HCPCS: 12002; 73110; 99283

== ENCOUNTER → 2021-05-25 07:48 | Outpatient (BNVA) | payer MEDICARE, MEDICAID, SELFPAY | PROVIDERS: PCP Nurse Practitioner Family; Visit Provider Nurse Practitioner Psychiatric/Mental Health | DX: F63.81 Intermittent explosive disorder (principal); G40.309 Generalized idiopathic epilepsy and epileptic syndromes, not intractable, without status epilepticus; F17.200 Nicotine dependence, unspecified, uncomplicated; F79 Unspecified intellectual disabilities | CPT/HCPCS: 99214 ==

== ENCOUNTER → 2021-06-15 16:02 | Outpatient (BNVA) | payer MEDICARE, MEDICAID, SELFPAY | PROVIDERS: PCP Nurse Practitioner Family; Visit Provider Nurse Practitioner | DX: Z11.1 Encounter for screening for respiratory tuberculosis (principal); K64.9 Unspecified hemorrhoids; K21.9 Gastro-esophageal reflux disease without esophagitis; L21.9 Seborrheic dermatitis, unspecified; J30.89 Other allergic rhinitis; E78.5 Hyperlipidemia, unspecified; M79.10 Myalgia, unspecified site; F63.81 Intermittent explosive disorder; F79 Unspecified intellectual disabilities; F17.200 Nicotine dependence, unspecified, uncomplicated | CPT/HCPCS: 71046; 80053; 80061; 85025 ==

== ENCOUNTER → 2021-06-25 15:34 | Outpatient (BNVA) | payer MEDICARE, MEDICAID, SELFPAY | PROVIDERS: PCP Nurse Practitioner Family; Visit Provider Nurse Practitioner | DX: E78.5 Hyperlipidemia, unspecified (principal); Z71.89 Other specified counseling | CPT/HCPCS: 81000 ==

== ENCOUNTER → 2021-09-03 08:58 | Outpatient (BNVA) | payer MEDICARE, MEDICAID, SELFPAY | PROVIDERS: PCP Nurse Practitioner Family; Visit Provider Nurse Practitioner Psychiatric/Mental Health | DX: F79 Unspecified intellectual disabilities (principal); F63.81 Intermittent explosive disorder; F17.200 Nicotine dependence, unspecified, uncomplicated | CPT/HCPCS: 99213 ==

== ENCOUNTER → 2021-11-26 14:40 | Outpatient (BNVA) | payer MEDICARE, MEDICAID, SELFPAY | PROVIDERS: PCP Nurse Practitioner Family; Visit Provider Nurse Practitioner Psychiatric/Mental Health | DX: F63.81 Intermittent explosive disorder (principal); F79 Unspecified intellectual disabilities; F17.200 Nicotine dependence, unspecified, uncomplicated | CPT/HCPCS: 99213 ==

== ENCOUNTER → 2021-12-17 14:21 | Outpatient (BNVA) | payer MEDICARE, MEDICAID, SELFPAY | PROVIDERS: PCP Nurse Practitioner Family; Visit Provider Nurse Practitioner Family | DX: Z71.89 Other specified counseling (principal); J30.89 Other allergic rhinitis; L21.9 Seborrheic dermatitis, unspecified; K64.9 Unspecified hemorrhoids; M79.10 Myalgia, unspecified site; E78.5 Hyperlipidemia, unspecified; K21.9 Gastro-esophageal reflux disease without esophagitis; F63.81 Intermittent explosive disorder; F79 Unspecified intellectual disabilities; F17.200 Nicotine dependence, unspecified, uncomplicated | CPT/HCPCS: 80053; 80061; 84443; 85025 ==

== ENCOUNTER → 2022-02-02 10:16 | Outpatient (BNVA) | payer MEDICARE, MEDICAID, SELFPAY | PROVIDERS: PCP Nurse Practitioner Family; Visit Provider Specialist | DX: G40.309 Generalized idiopathic epilepsy and epileptic syndromes, not intractable, without status epilepticus (principal); F63.81 Intermittent explosive disorder; F31.60 Bipolar disorder, current episode mixed, unspecified; F17.210 Nicotine dependence, cigarettes, uncomplicated | CPT/HCPCS: 99213; 99214 ==

== ENCOUNTER 2022-02-26 23:11 | Emergency (ER) | payer MEDICARE, MEDICAID, SELFPAY ==
[2022-02-26 23:16] VITALS: BP 139/82; PULSE 86; RESP 17; TEMP 37; O2SAT 97; BMI 24.4
--- NOTE | 2022-02-27 00:23 | W.ED.PSYCHS ---
HPI - Psych General: Chief Complaint: Psychiatric Symptoms Stated Complaint: PSYCH EVAL Time Seen by Provider: 02/26/22 23:37 Source: patient History of Present Illness: 31-year-old male presenting from a halfway type environment. Evidently, he made threats to staff there after becoming angry. This threat was to shoot staff. He] he had a pistol in his possession. On my interview, he denies any homicidal or suicidal thoughts. He states I just got mad and said some things I should not have . He has a history of developmental delay. He also has a history of bipolar disorder. complaint: other Onset (ago): hour(s) Duration: resolved prior to arrival History of same: Yes Relieving factors: none Exacerbating factors: other Associated symptoms: Deny auditory hallucinations, visual hallucinations, homicidal ideation or suicidal ideation Treatments prior to arrival: none Review of Systems Const: Denies: fever(s) Card: Denies: chest pain Resp: Denies: dyspnea GI: Denies: abdominal pain, nausea, vomiting or diarrhea Psych: Denies: visual hallucinations, auditory hallucinations, suicidal ideation or homicidal ideation [facility] ED PFSH: Medical History Acid reflux Bipolar affective, mixed Dyslipidemia Generalized epilepsy GERD (gastroesophageal reflux disease) H/O retained foreign body fully removed (10/13/20) FB rectum Hemorrhoids Seborrheic dermatitis of scalp Surgical History Status post colonoscopy Family History Denies family history of Anesthesia complication Bleeding disorder Social History Smoking and tobacco status: current every day smoker cigarettes Packs smoked per day: 0.75 Years cigarettes smoked: 24 and smokeless tobacco Smokeless tobacco user: chewing tobacco Smokeless tobacco details: 2-3 weeks Second hand smoke exposure: Yes Smoking risk assessment/counseling performed?: Yes Alcohol intake: never Desire information about alcohol rehabilitation?: No Counseling given: No Desire information about substance/drug rehabilitation?: No Counseling given: No Adopted: Yes Caregiver/support person: Yes Lives independently: No Household members: family and caregiver Housing: House Marital status: Single Number of children: 0 Highest education level completed: 9th Grade Education level details: Till 9th Grade Current occupational status: employed Current occupation: [employer] Pets and animals: Yes History of recent travel: No Current gender identity: Male Physical Exam Const: COMMON NORMALS: alert GENERAL APPEARANCE: cooperative, comfortable and well kempt; not ill appearing and not frail appearing HENMT: COMMON NORMALS: normocephalic, atraumatic and Normal external nose present HEAD & SCALP: normocephalic and atraumatic FACE & SINUS: normal facial exam and face symmetric NOSE: Normal external nose present Eye: COMMON NORMALS: Equal, round and reactive pupils present and EOMs intact bilaterally PUPIL: Yes Equal, round and reactive pupils present Neck/C-Spine: GENERAL: Yes trachea midline Chest: CHEST: Yes Symmetrical chest wall rise Resp: COMMON NORMALS: normal respiratory effort, No retractions, No use of accessory muscles and clear to auscultation bilaterally AUSCULTATION: clear to auscultation bilaterally Cardio: COMMON NORMALS: regular rate and regular rhythm RATE: regular rate RHYTHM: regular rhythm GI: COMMON NORMALS: Normal to inspection, nondistended, normoactive bowel sounds present Extremity: COMMON NORMALS: no pedal edema Neuro: BALDEMRA COMA SCALE: document GCS findings Baldemar coma scale eye opening: Spontaneous [place] coma scale verbal response: Orientated [place]ar coma scale motor response: Obey commands Baldemar coma scale total score: 15 SENSORIUM/ORIENTATION: Yes alert SPEECH: speech normal GAIT: Yes Normal gait present Psych: COMMON NORMALS: Normal thought process present and speech normal APPEARANCE: Yes well kempt ATTITUDE: Yes calm ACTIVITY/MOTOR BEHAVIOR: Yes appropriate eye contact SPEECH: Yes normal speech THOUGHT PROCESS: Normal thought process present THOUGHT CONTENT: No Suicidality present and No Homicidality present ATTENTION/CONCENTRATION: Yes attention grossly intact and Yes concentration grossly intact MEMORY/COGNITION: Yes memory grossly intact and Yes cognition grossly intact INSIGHT: Limited insight present (Psych) Course Consultations: Consultation #1: kalen Time: 00:30 Vital Signs: Vital signs: Vital Signs Temperature 98.6 F 02/26/22 23:16 Pulse Rate 78 02/27/22 01:46 Respiratory Rate 14 02/27/22 01:46 Blood Pressure 135/82 02/27/22 01:46 Pulse Oximetry 98 02/27/22 01:46 MDM - Psych Medical Decision Making Patient appears medically stable. He is not intoxicated. He is calm, cooperative, and remorseful. I spoke with psychiatry. While enforcement did write an affidavit that he had made statements about a pistol. They searched at home, and did not find pistol. Psychiatry recommendations are to increase risperidone dosage slightly, and allow him back to his normal environment. He notes that they are not likely to see this type of behavior in the neuropsychiatric unit, as it is not his home environment. They see no need for for psychiatric admission. We will make changes to risperidone dosage according to psychiatry's recommendations, and allow back to his home environment. Discharge Plan Discharge Patient Disposition: Home Clinical Impression: Intermittent explosive disorder Condition: Stable Prescriptions: New risperidone 2 mg tablet See Rx Instructions .ROUTE .COMPLEX Qty: 45 0RF Rx Instructions: 2 mg (1 tab) PO in AM 2mg(1 tab)PO at night 1mg (1/2) tab at 3pm Discontinued risperidone [Risperdal] 2 mg tablet See Rx Instructions PO .COMPLEX Qty: 60 0RF Rx Instructions: Take one tab in the morning, half a tab at 3pm, and half a tab at night, No Action Vimpat 200 mg tablet 200 mg PO BID Qty: 60 5RF trazodone 50 mg tablet 50 mg PO DAILY Qty: 30 2RF Rx Instructions: Take one tablet daily at bedtime benztropine 1 mg tablet 1 mg PO BID Qty: 60 2RF Rx Instructions: take one tablet by mouth twice daily multivitamin Tablet 1 tab PO QAM Qty: 30 11RF loratadine 10 mg tablet 10 mg PO DAILY Qty: 30 5RF lactulose 10 gram/15 mL (15 mL) solution 10 g PO DAILY PRN (Reason: constipation) Qty: 750 3RF ketoconazole 2 % shampoo 1 applic TOPICAL Q14D PRN (Reason: itchy dry skin) Qty: 120 5RF hydrocortisone 2.5 % cream 1 applic TOPICAL DAILY PRN (Reason: apply for rectal pain) Qty: 30 2RF acetaminophen 500 mg tablet 500 mg PO Q6H PRN (Reason: fever or pain) Qty: 60 5RF rosuvastatin [Crestor] 40 mg tablet 40 mg PO DAILY Qty: 30 5RF omeprazole 40 mg capsule,delayed release(DR/EC) 40 mg PO DAILY Qty: 30 5RF Dimetapp DM Cold-Cough (PE) 1-2.5-5 mg/5 mL solution 5 ml PO .every 6 hours PRN (Reason: allergy symptoms and cough) Qty: 237 2RF Rx Instructions: to replace Dimetapp cold and allergy Discharge Orders: Discharge ED (Routine); Ordered 02/27/22 Ordered By: Tereso Silveira Referrals: Eduarda Uriarte FNP-[facility] [Primary Care Provider] - 4-7 days Discharge Diet: Advance as tolerated Patient Instructions: Bipolar Disorder (ED) Activity Restrictions/Additional Instructions: Psychiatry was consulted from the ER. They suggested this medication change, and outpatient follow-up. Return for worsening mental status, any other concerns. 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
--- NOTE | 2022-02-27 00:57 | PC.NURSE ---
Call to Steven @[phone]- called Steven Lawrence for patient at [phone] and let her know that a consult was done with [facility]. Pt will be given a script for med change and will follow up outpt. Ronda is aware that she will need to have someone picking table worker the patient.
[2022-02-27 01:43] VITALS: BP 135/82; PULSE 78; RESP 14; O2SAT 98
[2022-02-27 01:46] VITALS: BP 135/82; PULSE 78; RESP 14; O2SAT 98
== END 2022-02-27 03:41 | disposition home or self-care (01) ==
PROVIDERS: Emergency Provider Emergency Medicine; PCP Nurse Practitioner Family
DX: F63.81 Intermittent explosive disorder (principal); R62.50 Unspecified lack of expected normal physiological development in childhood; F31.9 Bipolar disorder, unspecified
CPT/HCPCS: 99283

== ENCOUNTER → 2022-03-01 14:05 | Outpatient (BNVA) | payer MEDICARE, MEDICAID, SELFPAY | PROVIDERS: PCP Nurse Practitioner Family; Visit Provider Nurse Practitioner Psychiatric/Mental Health | DX: F79 Unspecified intellectual disabilities (principal); F63.81 Intermittent explosive disorder; F17.200 Nicotine dependence, unspecified, uncomplicated | CPT/HCPCS: 99214 ==

== ENCOUNTER 2022-05-13 19:11 | Emergency (ER) | payer MEDICARE, MEDICAID, SELFPAY ==
--- NOTE | 2022-05-13 19:13 | XRR_ITS ---
PROCEDURE INFORMATION: Exam: XR Left Hand Exam date and time: 05/13/2022 7:25 PM Age: 32 years old Clinical indication: Pain; Hand; Left; Additional info: L hand pain TECHNIQUE: Imaging protocol: Radiologic exam of the Left hand. Views: 3 or more views. COMPARISON: No relevant prior studies available. FINDINGS: Bones/joints: Normal. Soft tissues: Normal. XR/XR hand LT min 3V* [id number] IMPRESSION: No acute findings.
--- NOTE | 2022-05-13 19:13 | XRR_ITS ---
PROCEDURE INFORMATION: Exam: XR Left Wrist Exam date and time: 05/13/2022 7:25 PM Age: 32 years old Clinical indication: Pain; Wrist; Left; Additional info: L hand pain TECHNIQUE: Imaging protocol: Radiologic exam of the Left wrist. Views: 1 or 2 views. COMPARISON: No relevant prior studies available. FINDINGS: Bones/joints: Normal. Soft tissues: Normal. XR/XR wrist LT 2V [id number] IMPRESSION: No acute findings.
[2022-05-13 19:18] VITALS: BP 154/94; PULSE 70; RESP 16; TEMP 36.8; O2SAT 98; BMI 24.0
[2022-05-13] MEDS: HYDROcodone-acetaminophen 5-325 mg Tablet 1 TAB PO (19:35)
--- NOTE | 2022-05-13 19:37 | ED_ITS ---
HPI - Fall General: Chief Complaint: Fall Stated Complaint: Left hand/wrist injury Time Seen by Provider: 05/13/22 19:20 Source: patient Mode of arrival: ambulatory Limitations: no limitations History of Present Illness: 32-year-old male states that he had a ground-level fall just prior to arrival he landed on his left wrist he has left wrist pain since the fall. States pain is sharp rates it a 5 out of 10 worse with movement improved with rest denies any other injuries denies hitting his head. Associated symptoms-after fall: Denies abdominal pain, chest pain or headache(s) Review of Systems Const: Denies: fever(s), chills, body aches or change in appetite Eyes: Denies: blurry vision or eye discomfort ENMT: Denies: throat pain or dental pain Card: Denies: chest pain Resp: Denies: dyspnea GI: Denies: abdominal pain, nausea, vomiting or diarrhea : Denies: dysuria Musc: Reports: extremity pain Skin/Breast: Denies: rash Neuro: Denies: headache(s) Psych: Denies: depression Miguel Angel/Lymph: Denies: easy bruising All/Imm: Denies: urticaria PFSH ED PFSH: Medical History Acid reflux Bipolar affective, mixed Bronchitis Dyslipidemia Generalized epilepsy GERD (gastroesophageal reflux disease) H/O retained foreign body fully removed (10/13/20) FB rectum Hemorrhoids Seborrheic dermatitis of scalp Surgical History Status post colonoscopy Family History Denies family history of Anesthesia complication Bleeding disorder Social History Smoking and tobacco status: current every day smoker cigarettes Packs smoked per day: 1 Years cigarettes smoked: 24 Second hand smoke exposure: Yes Smoking risk assessment/counseling performed?: Yes Alcohol intake: never Desire information about alcohol rehabilitation?: No Counseling given: No Desire information about substance/drug rehabilitation?: No Counseling given: No Adopted: Yes Caregiver/support person: Yes Lives independently: No Household members: family and caregiver Housing: House Marital status: Single Number of children: 0 Highest education level completed: 9th Grade Education level details: Till 9th Grade Current occupational status: employed Current occupation: [employer] Pets and animals: Yes History of recent travel: No Current gender identity: Male Physical Exam Const: COMMON NORMALS: no acute distress, patient oriented x3 and healthy appearing HENMT: COMMON NORMALS: normocephalic and atraumatic HEAD & SCALP: normocephalic and atraumatic Eye: COMMON NORMALS: Equal, round and reactive pupils present and EOMs intact bilaterally PUPIL: Yes Equal, round and reactive pupils present Neck/C-Spine: COMMON NORMALS: full ROM and supple Chest: COMMONS NORMALS: normal inspection of the chest and normal palpation of entire chest wall Resp: COMMON NORMALS: normal respiratory effort, No retractions, No use of accessory muscles and clear to auscultation bilaterally AUSCULTATION: clear to auscultation bilaterally Cardio: COMMON NORMALS: regular rate, regular rhythm and No murmurs present (Cardio) RATE: regular rate RHYTHM: regular rhythm GI: COMMON NORMALS: Normal to inspection, nondistended, normoactive bowel sounds present, Soft to palpation, non-tender and no masses PALPATION: Yes Soft to palpation Extremity: COMMON NORMALS: full ROM NARRATIVE EXTREMITY EXAM: Tenderness to left wrist no obvious deformity full range of motion noted to wrist and hand distal pulses and sensation intact Neuro: COMMON NORMALS: patient oriented x3, moves all extremities and no focal motor deficits Psych: COMMON NORMALS: mental status grossly normal, Normal thought process present and cooperative THOUGHT PROCESS: Normal thought process present Skin: COMMON NORMALS: no rashes or lesions noted and no wounds GENERAL SKIN EXAM: no rashes or lesions noted Course Vital Signs: Vital signs: Vital Signs Temperature 98.3 F 05/13/22 19:18 Pulse Rate 70 05/13/22 19:18 Respiratory Rate 16 05/13/22 19:18 Blood Pressure 154/94 05/13/22 19:18 Pulse Oximetry 98 05/13/22 19:18 Oxygen Delivery Me thod 05/13/22 19:18 MDM - Fall Medical Decision Making Patient presents to the left wrist sprain from a fall x-ray shows no fracture he is well-appearing here he stable for discharge he is to follow-up PCP and return if worsening. Lab Data Radiology Impressions Hand X-Ray 08/18/22 19:13 IMPRESSION: No acute findings. Wrist X-Ray 05/13/22 19:13 IMPRESSION: No acute findings. Discharge Plan Discharge Patient Disposition: Home Clinical Impression: Left wrist sprain Condition: Stable Prescriptions: New Naprosyn 500 mg tablet 500 mg PO BID PRN (Reason: pain) Qty: 20 0RF No Action Vimpat 200 mg tablet 200 mg PO BID Qty: 60 5RF multivitamin Tablet 1 tab PO QAM Qty: 30 11RF loratadine 10 mg tablet 10 mg PO DAILY Qty: 30 5RF lactulose 10 gram/15 mL (15 mL) solution 10 g PO DAILY PRN (Reason: constipation) Qty: 750 3RF ketoconazole 2 % shampoo 1 applic TOPICAL Q14D PRN (Reason: itchy dry skin) Qty: 120 5RF hydrocortisone 2.5 % cream 1 applic TOPICAL DAILY PRN (Reason: apply for rectal pain) Qty: 30 2RF acetaminophen 500 mg tablet 500 mg PO Q6H PRN (Reason: fever or pain) Qty: 60 5RF rosuvastatin [Crestor] 40 mg tablet 40 mg PO DAILY Qty: 30 5RF omeprazole 40 mg capsule,delayed release(DR/EC) 40 mg PO DAILY Qty: 30 5RF trazodone 50 mg tablet 50 mg PO DAILY Qty: 30 2RF Rx Instructions: Take one tablet daily at bedtime benztropine 1 mg tablet 1 mg PO BID Qty: 60 2RF Rx Instructions: take one tablet by mouth twice daily risperidone 2 mg tablet 2 mg PO .COMPLEX Qty: 75 1RF Rx Instructions: Take 2 mg-one tablet by mouth morning and night and 1/2 tablet daily at 3 PM benzonatate 200 mg capsule 200 mg PO BID PRN (Reason: cough) Qty: 20 0RF sulfamethoxazole-trimethoprim [Bactrim DS] 800-160 mg tablet 1 tab PO BID Qty: 14 0RF Dimetapp DM Cold-Cough (PE) 1-2.5-5 mg/5 mL solution 5 ml PO .every 6 hours PRN (Reason: allergy symptoms and cough) Qty: 237 2RF Rx Instructions: to replace Dimetapp cold and allergy Discharge Orders: Discharge ED (Routine); Ordered 05/13/22 Ordered By: Ashlee Craft Referrals: Eduarda Uriarte FNP-C [Primary Care Provider] - Discharge Diet: Advance as tolerated Discharge Activity: Resume usual activity Patient Instructions: Wrist Sprain (ED) Coding Level of Care Code 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
[2022-05-13 20:01] VITALS: RESP 16
== END 2022-05-13 20:02 | disposition home or self-care (01) ==
PROVIDERS: Emergency Provider Emergency Medicine; PCP Nurse Practitioner Family
DX: S63.502A Unspecified sprain of left wrist, initial encounter (principal); E78.5 Hyperlipidemia, unspecified; F17.210 Nicotine dependence, cigarettes, uncomplicated; W18.30XA Fall on same level, unspecified, initial encounter
CPT/HCPCS: 73100; 73130; 99283

== ENCOUNTER → 2022-06-02 09:35 | Outpatient (BNVA) | payer MEDICARE, MEDICAID, SELFPAY | PROVIDERS: PCP Nurse Practitioner Family; Visit Provider Nurse Practitioner Family | DX: K92.1 Melena (principal); Z79.899 Other long term (current) drug therapy; K64.9 Unspecified hemorrhoids | CPT/HCPCS: 74018; 80061; 83036; 85025 ==

== ENCOUNTER → 2022-06-09 14:14 | Outpatient (BNVA) | payer MEDICARE, MEDICAID, OTHER, SELFPAY | PROVIDERS: PCP Nurse Practitioner Family; Visit Provider Surgery | DX: K92.1 Melena (principal) | CPT/HCPCS: 99203 ==

== ENCOUNTER → 2022-06-21 09:23 | Outpatient (BNVA) | payer MEDICARE, MEDICAID, SELFPAY | PROVIDERS: PCP Nurse Practitioner Family; Visit Provider Nurse Practitioner Family | DX: E78.5 Hyperlipidemia, unspecified (principal); Z00.00 Encounter for general adult medical examination without abnormal findings; Z11.1 Encounter for screening for respiratory tuberculosis | CPT/HCPCS: 71046; 80053; 80061; 85025 ==

== ENCOUNTER 2022-07-02 06:50 | Day surgery (SDC) | payer MEDICARE, MEDICAID, SELFPAY ==
[2022-07-01 08:44] VITALS: BMI 26.6
[2022-07-02 07:08] VITALS: BP 118/80; PULSE 90; RESP 16; TEMP 36.2; O2SAT 97
[2022-07-02] MEDS: sodium chloride 0.9% 1,000 ML 30 ML IV (07:12)
--- NOTE | 2022-07-02 07:41 | P.ANESASSM_ITS ---
Documented by User: Phoebe Lugo CRNA 07/02/22 07:44 Pre-Anesthetic Assessment Height/Weight: Height 1.75 m Weight 81.647 kg Temp Pulse Resp BP Pulse Ox O2 Del Method 97.1 F L 90 16 118/80 97 07/02/22 07:08 07/02/22 07:08 07/02/22 07:08 07/02/22 07:08 07/02/22 07:08 07/02/22 07:08 Preop Diagnosis: Bleeding per rectum Operation Date: 07/02/22 08:30 Proposed Procedures p EGD and colonoscopy 54100,14837,K92.1(Not Applicable) - Nathaniel Phelps MD s Colonoscopy(Not Applicable) - Nathaniel Phelps MD Familial anesthetic complications: none Was Beta Nazario taken within 24 hours: N/A Was Clonidine taken within 24 hours: N/A Last intake: Intake Last Liquid Date 07/01/22 Last Liquid Time 19:00 Last Solid Date 06/30/22 Last Solid Time 18:30 Social Tobacco and No alcohol Exam alert and oriented x 3 Airway Submandibular: within normal limits Cervical ROM: within normal limits Mallampati: Class II Dentition: full History/ROS No significant history except as noted Pulmonary None reported CV/HEM None reported None reported Hepatic None reported GI None reported Metabolic Hyper[place] [facility] [place] None reported Neuropsych Seizure (on medications- took this AM. hasnt had a seizure in many years) Anesthetic Plan ASA status: 3 Anesthesia: Anesthesia Evaluation and MAC Risk of > 500 ml blood loss (7ml/kg in children): No Medications/Allergies Home Medications Medication Instructions Recorded Confirmed Last Taken Type lacosamide 200 mg tablet (Vimpat) 200 mg PO BID #60 tabs 02/02/22 07/01/22 07/01/22 Rx acetaminophen 500 mg tablet 500 mg PO Q6H PRN fever or pain 06/15/22 07/01/22 07/01/22 Rx #60 tabs hydrocortisone 2.5 % topical cream 1 applic topical DAILY PRN apply 06/15/22 07/01/22 07/01/22 Rx for rectal pain #30 grams ketoconazole 2 % shampoo 1 applic topical Q14D PRN itchy 06/15/22 07/01/22 07/01/22 Rx dry skin #120 mL lactulose 10 gram/15 mL (15 mL) 10 g (15 mL) PO DAILY PRN 06/15/22 07/01/22 07/01/22 Rx oral solution constipation #750 mL loratadine 10 mg tablet 10 mg PO DAILY #30 tabs 06/15/22 07/01/22 07/01/22 Rx multivitamin 1 tab PO QAM #30 tabs 06/15/22 07/01/22 07/02/22 Rx omeprazole 40 mg capsule,delayed 40 mg PO DAILY #30 caps 06/15/22 07/01/22 07/01/22 Rx release rosuvastatin 40 mg tablet (Crestor) 40 mg PO DAILY #30 tabs 06/15/22 07/01/22 07/01/22 Rx benztropine 1 mg tablet 1 mg PO BID #60 tabs 06/21/22 07/01/22 07/02/22 Rx risperidone 2 mg tablet 2 mg PO BID #60 tabs 06/21/22 07/01/22 07/02/22 Rx trazodone 50 mg tablet 50 mg PO DAILY #30 tabs 06/21/22 07/01/22 07/01/22 Rx peg 3350-electrolytes 236 240 ml PO Q10M #4,000 mL 07/01/22 07/01/22 Rx gram-22.74 gram-6.74 gram-5.86 gram solution (Golytely) Allergies Allergy/AdvReac Type Severity Reaction Status Date / Time adhesive tape Allergy ALGY-Rash Verified 07/02/22 07:06 aripiprazole [From Abiliy] Allergy ALGY-Hives Verified 07/02/22 07:06 Current Medications Generic Name Dose Route Start Last Admin Trade Name Freq PRN Reason Stop Dose Admin Sodium Chloride 1,000 mls @ 30 mls/hr 07/02/22 07:00 07/02/22 07:12 Sodium Chloride 0.9% IV 30 mls/hr .Q24H REJI Administration PFSH Anesthesia Medical History Acid reflux Bipolar affective, mixed Bronchitis Dyslipidemia Generalized epilepsy GERD (gastroesophageal reflux disease) H/O retained foreign body fully removed (10/13/20) FB rectum Hemorrhoids Seborrheic dermatitis of scalp Surgical History Status post colonoscopy Family History Denies family history of Anesthesia complication Bleeding disorder Social History Smoking and tobacco status: current every day smoker cigarettes Packs smoked per day: 1 Years cigarettes smoked: 24 Second hand smoke exposure: Yes Smoking risk assessment/counseling performed?: Yes Alcohol intake: never Desire information about alcohol rehabilitation?: No Counseling given: No Desire information about substance/drug rehabilitation?: No Counseling given: No Adopted: Yes Caregiver/support person: Yes Lives independently: No Household members: family and caregiver Housing: House Marital status: Single Number of children: 0 Highest education level completed: 9th Grade Education level details: Till 9th Grade Current occupational status: employed Current occupation: [employer] Pets and animals: Yes History of recent travel: No Current gender identity: Male Data Anesthesia Cardiac Studies: No Data to Display Documented by User: Ana Villatoro DO 07/02/22 08:10 Pre-Anesthetic Assessment Anesthetic Plan Other: I discussed with the patient's next of kin listed in the chart as well as Krishan Nielsen and we discussed risks, goals, and benefits of MAC and general anesthesia. We discussed spectrum of MAC anesthesia including conversion to general as well as possibility of recall of intraoperative stimuli including discomfort/pain. Next of kin and Ronda Nielsen both agree to proceed with MAC. Medications/Allergies Home Medications Medication Instructions Recorded Confirmed Last Taken Type lacosamide 200 mg tablet (Vimpat) 200 mg PO BID #60 tabs 02/02/22 07/01/22 07/01/22 Rx acetaminophen 500 mg tablet 500 mg PO Q6H PRN fever or pain 06/15/22 07/01/22 07/01/22 Rx #60 tabs hydrocortisone 2.5 % topical cream 1 applic topical DAILY PRN apply 06/15/22 07/01/2222 Rx for rectal pain #30 grams ketoconazole 2 % shampoo 1 applic topical Q14D PRN itchy 06/15/22 07/01/22 07/01/22 Rx dry skin #120 mL lactulose 10 gram/15 mL (15 mL) 10 g (15 mL) PO DAILY PRN 06/15/22 07/01/22 07/01/22 Rx oral solution constipation #750 mL loratadine 10 mg tablet 10 mg PO DAILY #30 tabs 06/15/22 07/01/22 07/01/22 Rx multivitamin 1 tab PO QAM #30 tabs 06/15/22 07/01/22 07/02/22 Rx omeprazole 40 mg capsule,delayed 40 mg PO DAILY #30 caps 06/15/22 07/01/22 07/01/22 Rx release rosuvastatin 40 mg tablet (Crestor) 40 mg PO DAILY #30 tabs 06/15/22 07/01/22 07/01/22 Rx benztropine 1 mg tablet 1 mg PO BID #60 tabs 06/21/22 07/01/22 07/02/22 Rx risperidone 2 mg tablet 2 mg PO BID #60 tabs 06/21/22 07/01/22 07/02/22 Rx trazodone 50 mg tablet 50 mg PO DAILY #30 tabs 06/21/22 07/01/22 07/01/22 Rx peg 3350-electrolytes 236 240 ml PO Q10M #4,000 mL 07/01/22 07/01/22 Rx gram-22.74 gram-6.74 gram-5.86 gram solution (Golytely) Allergies Allergy/AdvReac Type Severity Reaction Status Date / Time adhesive tape Allergy ALGY-Rash Verified 07/02/22 07:06 aripiprazole [From Abilify] Allergy ALGY-Hives Verified 07/02/22 07:06 [facility] Anesthesia Medical History Acid reflux Bipolar affective, mixed Bronchitis Dyslipidemia Generalized epilepsy GERD (gastroesophageal reflux disease) H/O retained foreign body fully removed (10/13/20) FB rectum Hemorrhoids Seborrheic dermatitis of scalp Surgical History Status post colonoscopy Family History Denies family history of Anesthesia complication Bleeding disorder Social History Smoking and tobacco status: current every day smoker cigarettes Packs smoked per day: 1 Years cigarettes smoked: 24 Second hand smoke exposure: Yes Smoking risk assessment/counseling performed?: Yes Alcohol intake: never Desire information about alcohol rehabilitation?: No Counseling given: No Desire information about substance/drug rehabilitation?: No Counseling given: No Adopted: Yes Caregiver/support person: Yes Lives independently: No Household members: family and caregiver Housing: House Marital status: Single Number of children: 0 Highest education level completed: 9th Grade Education level details: Till 9th Grade Current occupational status: employed Current occupation: [employer] Pets and animals: Yes History of recent travel: No Current gender identity: Male Data Anesthesia Cardiac Studies: No Data to Display
--- NOTE | 2022-07-02 07:50 | W.PM.OPSUD ---
Surgery/Procedure H&P Update DATE OF PROCEDURE: July 02, 2022 DATE H&P PERFORMED: 06/09/22 H&P UPDATE INFORMATION: I have reviewed H&P completed within last 30 days, I have examined patient prior to procedure and Changes to prior documentation as noted here (An informed consent was obtained from the legal guardian over the phone from Jayashree Ronda Nielsen in the presence of nursing staff Laura.) PREOP DIAGNOSIS: Bleeding per rectum PRIMARY INDICATION FOR PROCEDURE: The same PLANNED PROCEDURE: Operation Date: 07/02/22 08:30 Proposed Procedures p EGD and colonoscopy 27501,72960,K92.1(Not Applicable) - Nathaniel Phelps MD s Colonoscopy(Not Applicable) - Nathaniel Phelps MD
[2022-07-02 08:56] VITALS: BP 115/73; PULSE 74; RESP 20; TEMP 36.1; O2SAT 97
[2022-07-02 09:06] VITALS: BP 116/76; PULSE 72; RESP 18; O2SAT 96
[2022-07-02 09:15] VITALS: BP 126/73; PULSE 67; RESP 18; O2SAT 97
--- NOTE | 2022-07-02 14:44 | ANE.PACU2 ---
Inpatient post-anesthesia follow up: Airway intact: Yes Vital signs: Temperature 97 F Pulse Rate 67 Respiratory Rate 18 Blood Pressure 126/73 Pulse Oximetry 97 Oxygen Delivery Me thod Room Air Oxygen Flow Rate 3 Fraction of Inspir ed Oxygen Hydration adequate: Yes Nausea and vomiting: No Pain level: 1 Mental status: Baseline
== END 2022-07-02 09:30 | disposition home or self-care (01) ==
PROVIDERS: PCP Nurse Practitioner Family; Visit Provider Surgery
PROC: 0DJ08ZZ Inspection of Upper Intestinal Tract, Via Natural or Artificial Opening Endoscopic (ICD-10-PCS; CPT 43235; principal; 2022-07-02 08:30)
PROC: 0DJD8ZZ Inspection of Lower Intestinal Tract, Via Natural or Artificial Opening Endoscopic (ICD-10-PCS; CPT 45378; 2022-07-02 08:30)
DX: K92.1 Melena (principal); D12.5 Benign neoplasm of sigmoid colon; K21.00 Gastro-esophageal reflux disease with esophagitis, without bleeding; K29.50 Unspecified chronic gastritis without bleeding; B96.81 Helicobacter pylori [H. pylori] as the cause of diseases classified elsewhere; E78.5 Hyperlipidemia, unspecified; F17.210 Nicotine dependence, cigarettes, uncomplicated
CPT/HCPCS: 43239; 45385; 88305; J2704; J7030

== ENCOUNTER → 2022-07-19 09:18 | Outpatient (BNVA) | payer MEDICARE, MEDICAID, SELFPAY | PROVIDERS: PCP Nurse Practitioner Family; Visit Provider Surgery | DX: Z09 Encounter for follow-up examination after completed treatment for conditions other than malignant neoplasm (principal); K63.5 Polyp of colon; K29.70 Gastritis, unspecified, without bleeding | CPT/HCPCS: 99213 ==

== ENCOUNTER → 2022-12-13 14:33 | Outpatient (BNVA) | payer MEDICARE, MEDICAID, SELFPAY | PROVIDERS: PCP Nurse Practitioner Family; Visit Provider Nurse Practitioner Family | DX: E78.5 Hyperlipidemia, unspecified (principal); K21.9 Gastro-esophageal reflux disease without esophagitis; Z71.89 Other specified counseling; J30.89 Other allergic rhinitis; L21.9 Seborrheic dermatitis, unspecified; M79.10 Myalgia, unspecified site; K64.9 Unspecified hemorrhoids; L98.9 Disorder of the skin and subcutaneous tissue, unspecified; F17.200 Nicotine dependence, unspecified, uncomplicated | CPT/HCPCS: 80053; 80061; 84443; 85025 ==

== ENCOUNTER → 2023-02-02 12:39 | Outpatient (BNVA) | payer MEDICARE, MEDICAID, SELFPAY | PROVIDERS: PCP Nurse Practitioner Family; Visit Provider Specialist | DX: G40.309 Generalized idiopathic epilepsy and epileptic syndromes, not intractable, without status epilepticus (principal); G56.11 Other lesions of median nerve, right upper limb; F17.210 Nicotine dependence, cigarettes, uncomplicated | CPT/HCPCS: 99214 ==

== ENCOUNTER → 2023-02-03 14:04 | Outpatient (BNVA) | payer MEDICARE, MEDICAID, SELFPAY | PROVIDERS: PCP Nurse Practitioner Family; Visit Provider Nurse Practitioner Family | DX: R30.0 Dysuria (principal) | CPT/HCPCS: 74018; 81000; 87491; 87591; 87661 ==

== ENCOUNTER → 2023-06-10 09:49 | Outpatient (BNVA) | payer MEDICARE, SELFPAY | PROVIDERS: PCP Nurse Practitioner Family; Visit Provider Nurse Practitioner Family | DX: E78.5 Hyperlipidemia, unspecified (principal) | CPT/HCPCS: 80053; 80061; 84443; 85025 ==

== ENCOUNTER → 2023-06-24 09:14 | Outpatient (BNVA) | payer MEDICARE, SELFPAY | PROVIDERS: PCP Nurse Practitioner Family; Visit Provider Nurse Practitioner Family | DX: D72.829 Elevated white blood cell count, unspecified (principal) | CPT/HCPCS: 85025 ==

== ENCOUNTER → 2023-07-27 13:38 | Outpatient (BNVA) | payer MEDICARE, MEDICAID, SELFPAY | PROVIDERS: PCP Nurse Practitioner Family; Visit Provider Nurse Practitioner Family | DX: A15.0 Tuberculosis of lung (principal) | CPT/HCPCS: 71046 ==

== ENCOUNTER → 2023-09-21 15:15 | Outpatient (BNVA) | payer MEDICARE, MEDICAID, SELFPAY | PROVIDERS: PCP Nurse Practitioner Family; Visit Provider Nurse Practitioner Family | DX: E78.5 Hyperlipidemia, unspecified (principal) | CPT/HCPCS: 80053; 80061; 84443; 85025 ==

== ENCOUNTER → 2023-10-12 09:58 | Outpatient (BNVA) | payer MEDICARE, MEDICAID, SELFPAY | PROVIDERS: PCP Nurse Practitioner Family; Visit Provider Nurse Practitioner Family | DX: R05.9 Cough, unspecified (principal) | CPT/HCPCS: 87400 ==

== ENCOUNTER 2023-11-30 18:41 | Emergency (ER) | payer MEDICARE, MEDICAID, SELFPAY ==
[2023-11-30 18:51] VITALS: BP 141/85; PULSE 70; RESP 14; TEMP 36.6; O2SAT 96
--- NOTE | 2023-11-30 19:06 | ED_ITS ---
HPI - Wound/Laceration General: Chief Complaint: Wound/Laceration Stated Complaint: head injury Time Seen by Provider: 11/30/23 18:55 Source: patient Mode of arrival: ambulatory Limitations: no limitations History of Present Illness: 33-year-old male states that he was eati ng a yard and ran into the close line and hit him in the top of his head is a very small superficial laceration to the top of his head he is up-to-date on his tetanus he has no bleeding at this time denies any loss of conscious denies any headache. Associated symptoms: Denies chills, fever(s), nausea or vomiting Review of Systems Const: Denies: fever(s), chills, body aches or change in appetite ENMT: Denies: throat pain or dental pain Card: Denies: chest pain Resp: Denies: dyspnea GI: Denies: abdominal pain, nausea, vomiting or diarrhea Musc: Denies: neck pain or back pain Skin/Breast: Denies: rash Neuro: Denies: headache(s) PFSH ED PFSH: Medical History Smoker Bronchitis H/O retained foreign body fully removed (10/13/20) FB rectum Seborrheic dermatitis of scalp Acid reflux Hemorrhoids Bipolar affective, mixed Generalized epilepsy GERD (gastroesophageal reflux disease) Dyslipidemia Surgical History Status post colonoscopy Family History Denies family history of Anesthesia complication Bleeding disorder Social History Smoking and tobacco/nicotine status: current every day tobacco/nicotine user cigarettes Packs smoked per day: 1 Years cigarettes smoked: 24 Second hand smoke exposure: Yes Alcohol intake: never Substance/Drug Use: never Adopted: Yes Caregiver/support person: Yes Lives independently: No Household members: family and caregiver Housing: House Marital status: Single Number of children: 0 Highest education level completed: 9th Grade Education level details: Till 9th Grade Current occupational status: employed Current occupation: [employer] Pets and animals: Yes Do you think of yourself as: Straight/Heterosexual Current gender identity: Male Physical Exam Const: COMMON NORMALS: no acute distress, patient oriented x3 and healthy appearing HENMT: COMMON NORMALS: normocephalic HEAD & SCALP: normocephalic OTHER: Small less than 1 cm superficial laceration to right parietal scalp no bleeding at this time Eye: COMMON NORMALS: Equal, round and reactive pupils present and EOMs intact bilaterally PUPIL: Yes Equal, round and reactive pupils present Neck/C-Spine: COMMON NORMALS: full ROM Chest: COMMONS NORMALS: normal inspection of the chest Resp: COMMON NORMALS: normal respiratory effort Extremity: COMMON NORMALS: normal to inspection and full ROM Neuro: COMMON NORMALS: patient oriented x3, moves all extremities and no focal motor deficits Psych: COMMON NORMALS: mental status grossly normal, Normal thought process present and cooperative THOUGHT PROCESS: Normal thought process present Skin: COMMON NORMALS: no rashes or lesions noted and no wounds GENERAL SKIN EXAM: no rashes or lesions noted Course Vital Signs: Vital signs: Vital Signs Temperature 97.9 F 11/30/23 18:51 Pulse Rate 70 11/30/23 18:51 Respiratory Rate 14 11/30/23 18:51 Blood Pressure 141/85 11/30/23 18:51 Pulse Oximetry 96 11/30/23 18:51 Oxygen Delivery Me thod Room Air 11/30/23 18:51 MDM - Wound/Laceration Medical Decision Making Patient presents here with a small superficial laceration does not require closure is not bleeding at this time he is up-to-date on his tetanus he is well- appearing here and stable for discharge Medical Records I reviewed the patient's medical records. No radiology studies performed this visit Discharge Plan Discharge Patient Disposition: Home Clinical Impression: Laceration Condition: Stable Prescriptions: No Action Vimpat 200 mg tablet 200 mg PO BID Qty: 180 3RF promethazine-DM 6.25-15 mg/5 mL syrup 5 - 10 ml PO Q6H PRN (Reason: cough) Qty: 240 5RF doxycycline hyclate 100 mg capsule 100 mg PO BID Qty: 14 0RF prednisone 20 mg tablet 20 mg PO BID Qty: 10 0RF budesonide-formoterol [Symbicort] 160-4.5 mcg/actuation HFA aerosol inhaler 2 puff inhalation BID Qty: 10.2 5RF albuterol sulfate 2.5 mg /3 mL (0.083 %) solution for nebulization 2.5 mg inhalation QID PRN (Reason: shortness of breath or wheezing) Qty: 75 0RF (DME) compressor, for nebulizer Device See Rx Instructions .Route Qty: 1 0RF Rx Instructions: As directed naproxen 500 mg tablet 500 mg PO BID promethazine-DM 6.25-15 mg/5 mL syrup 7.5 ml PO Q6H PRN (Reason: cough) Qty: 240 0RF rosuvastatin [Crestor] 40 mg tablet 40 mg PO DAILY Qty: 30 5RF omeprazole 40 mg capsule,delayed release(DR/EC) 40 mg PO DAILY Qty: 30 5RF multivitamin Tablet 1 tab PO QAM Qty: 30 11RF loratadine 10 mg tablet 10 mg PO DAILY Qty: 30 5RF lactulose 10 gram/15 mL (15 mL) solution 10 g PO DAILY PRN (Reason: constipation) Qty: 750 3RF ketoconazole 2 % shampoo 1 applic TOPICAL Q14D PRN (Reason: itchy dry skin) Qty: 120 5RF hydrocortisone 2.5 % cream 1 applic TOPICAL DAILY PRN (Reason: apply for rectal pain) Qty: 30 2RF albuterol sulfate 90 mcg/actuation HFA aerosol inhaler 2 puff inhalation QID PRN (Reason: shortness of breath or wheezing) Qty: 6.7 5RF acetaminophen 500 mg tablet 500 mg PO Q6H PRN (Reason: fever or pain) Qty: 60 5RF ibuprofen 400 mg tablet 400 mg PO TID PRN (Reason: pain) 7 Days Qty: 21 5RF diphenhydramine HCl [Benadryl] 25 mg capsule 50 mg PO BID PRN (Reason: allergy symptoms) 7 Days Qty: 28 5RF trazodone 100 mg tablet 100 mg PO .q hs Qty: 30 2RF Rx Instructions: Take one tablet daily at bedtime risperidone 2 mg tablet 2 mg PO BID Qty: 60 2RF Rx Instructions: Take one tablet by mouth morning and night time escitalopram oxalate 10 mg tablet 10 mg PO DAILY Qty: 30 2RF Rx Instructions: Take one tablet by mouth every day peg 3350-electrolytes [Golytely] 236-22.74-6.74 -5.86 gram recon soln 240 ml PO Q10M Qty: 4000 0RF Rx Instructions: until fecal effluent is clear mupirocin 2 % ointment 1 applic topical BID PRN (Reason: skin irritation) Qty: 22 2RF Discharge Orders: Discharge ED (Routine); Ordered 11/30/23 Ordered By: Ashlee Craft Referrals: Eduarda Uriarte FNP-C [Primary Care Provider] - 1-3 days Discharge Diet: Advance as tolerated Discharge Activity: Resume usual activity Patient Instructions: Laceration Without Closure (ED) Coding Level of Care Code 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
== END 2023-11-30 19:15 | disposition home or self-care (01) ==
PROVIDERS: Emergency Provider Emergency Medicine; PCP Nurse Practitioner Family
DX: S01.01XA Laceration without foreign body of scalp, initial encounter (principal); E78.5 Hyperlipidemia, unspecified; F17.210 Nicotine dependence, cigarettes, uncomplicated; W22.09XA Striking against other stationary object, initial encounter
CPT/HCPCS: 99281

== ENCOUNTER 2024-01-03 12:41 | Emergency (ER) | payer MEDICARE, MEDICAID, SELFPAY ==
[2024-01-03] VITALS (11 sets, daily range): BP systolic 126–135; BP diastolic 80–88; PULSE 61–71; RESP 13–25; TEMP 36.7; O2SAT 96–98; BMI 33.0
--- NOTE | 2024-01-03 12:44 | ECG_ITS ---
[facility] Test Date: 2024-01-03 Pat Name: Marc Romero Department: Room: Gender: Male Advertisement Compositor: : 1990 Requested By: Shayy Mackey Order Number: [id number] Brown MD: Sly Nayak M.D. Measurements Intervals [place] Rate: 72 P: 48 [place]: 169 QRS: 41 QRSD: 97 T: 29 QT: 391 QTc: 429 Interpretive Statements SINUS RHYTHM No previous ECG available for comparison Electronically Signed On 01-03-2024 21:22:37 CDT by Sly Nayak M.D. [email or web address]
--- NOTE | 2024-01-03 12:50 | XRR_ITS ---
PROCEDURE INFORMATION: Exam: XR Chest Exam date and time: 01/03/2024 1:14 PM Age: 33 years old Clinical indication: Shortness of breath TECHNIQUE: Imaging protocol: Radiologic exam of the chest. Views: 1 view. COMPARISON: CR XR chest 2V* [id number] 07/27/2023 1:37 PM FINDINGS: Lungs: Unremarkable. No consolidation. Pleural spaces: Unremarkable. No pleural effusion. No pneumothorax. Heart/Mediastinum: Unremarkable. No cardiomegaly. Bones/joints: Unremarkable. XR/XR chest 1V [id number] IMPRESSION: No acute findings.
[2024-01-03 13:03] LABS: Basophils # 0.1 10^3/uL (0.0-0.1); Basophils % 0.4 %; Eosinophils # 0.1 10^3/uL (0.0-0.8); Eosinophils % 1.2 %; Hematocrit 45.1 % (37-53); Lymphocytes # 2.9 10^3/uL (0.8-4.8); Lymphocytes % 24.6 %; Mean Corpuscular HGB Conc 34.1 g/dL (30-55); Mean Corpuscular Hemoglobin 32.2 pg (27-33); Mean Corpuscular Volume 94.4 fl (82-101); Mean Platelet Volume 10.1 fL (7.4-10.4); Monocytes # 0.7 10^3/uL (0.2-0.9); Monocytes % 5.5 %; Neutrophils # 8.13 10^3/uL (1.8-7.7); Nucleated Red Blood Cells % 0 %; Platelet Count 201 10^3/cmm (157-399); Red Blood Count 4.78 10^6/uL (3.85-5.65); Red Cell Distribution Width 12.6 % (12.1-15.1); White Blood Count 11.95 10^3/uL (3.29-11.43)
--- NOTE | 2024-01-03 13:07 | W.ED.CHESTPA ---
HPI - Chest Pain General: Chief Complaint: Chest Pain Stated Complaint: Chest Pain Time Seen by Provider: 01/03/24 12:50 History of Present Illness: 33-year-old man who presents to the emergency room by ambulance with chest pain. He says he has been having central sharp chest pain that hurts with palpation. He is also having numbness down into his right arm. No fever. No cough. No altered mental status. No abdominal pain. No nausea or vomiting. No diaphoresis. This been going on for couple days. Review of Systems Narrative: Constitutional symptoms: Negative except as documented in HPI. Skin symptoms: Negative except as documented in HPI. Eye symptoms: Negative except as documented in HPI. ENMT symptoms: Negative except as documented in HPI. Respiratory symptoms: Negative except as documented in HPI. Cardiovascular symptoms: Negative except as documented in HPI. Gastrointestinal symptoms: Negative except as documented in HPI. Genitourinary symptoms: Negative except as documented in HPI. Musculoskeletal symptoms: Negative except as documented in HPI. Neurologic symptoms: Negative except as documented in HPI. Psychiatric symptoms: Negative except as documented in HPI. Endocrine symptoms: Negative except as documented in HPI. [facility] ED PFSH: Medical History Smoker Bronchitis H/O retained foreign body fully removed (10/13/20) FB rectum Seborrheic dermatitis of scalp Acid reflux Hemorrhoids Bipolar affective, mixed Generalized epilepsy GERD (gastroesophageal reflux disease) Dyslipidemia Surgical History Status post colonoscopy Family History Denies family history of Anesthesia complication Bleeding disorder Social History Smoking and tobacco/nicotine status: current every day tobacco/nicotine user cigarettes Packs smoked per day: 1 Years cigarettes smoked: 24 Second hand smoke exposure: Yes Alcohol intake: never Substance/Drug Use: never Adopted: Yes Caregiver/support person: Yes Lives independently: No Household members: family and caregiver Housing: House Marital status: Single Number of children: 0 Highest education level completed: 9th Grade Education level details: Till 9th Grade Current occupational status: employed Current occupation: [employer] Pets and animals: Yes Do you think of yourself as: Straight/Heterosexual Current gender identity: Male Physical Exam Narrative: EXAM NARRATIVE: General: Alert, no acute distress. Skin: Warm, dry. Head: Normocephalic, atraumatic. Neck: Supple, trachea midline. Eye: Extraocular movements are intact. Ears, nose, mouth and throat: mucosa moist. Cardiovascular: Regular, Normal peripheral perfusion. Respiratory: Lungs are clear to auscultation, respirations are non-labored, breath sounds are equal, Symmetrical chest wall expansion. Gastrointestinal: Soft, Nontender, Non distended, Normal bowel sounds. Musculoskeletal: Normal ROM, no deformity. Neurological: Alert and oriented, No focal neurological deficit observed. Psychiatric: Cooperative, appropriate mood & affect. Course Vital Signs: Vital signs: Vital Signs Temperature 98.1 F 01/03/24 12:47 Pulse Rate 67 01/03/24 13:15 Respiratory Rate 18 01/03/24 13:15 Blood Pressure 126/80 01/03/24 13:15 Pulse Oximetry 98 01/03/24 13:15 Oxygen Delivery Me thod Room Air 01/03/24 13:15 MDM - Chest Pain Medical Decision Making Differential diagnosis for patient with chest pain includes but is not limited to and based on the above HPI, review of systems and physical exam: Pneumonia. unstable angina. angina. Acute coronary syndrome / [place]. Pulmonary embolism. Costochondritis / musculoskeletal. Pleurisy. Pericarditis. Esophageal spasm. Pancreatis. Cholecystitis. Workup: Lab work, chest X-ray and EKG ordered to evaluate, rule in and rule out above pathologies. Lab Review: Laboratory results were reviewed and interpreted by myself the emergency room physician. Lab work is unremarkable. No elevation in troponin. Symptoms been present for more than 1 day and are not typical for cardiac chest pain. EKG: Time 12:44 PM rate 72 normal sinus rhythm, No ST-T changes, no ectopy, normal KS & QRS intervals, This was reviewed and interpreted by myself the ER physician at 12:45 PM. Chest x-ray: No acute process. No infiltrate. No pneumothorax. No cardiomegaly. This was reviewed and interpreted by myself the ER physician. Emergency Department Assessment of Chest Pain Score (EDACS) from [employer] on 01/03/2024 All calculations should be rechecked by clinician prior to use RESULT SUMMARY: 2 points Low risk by the EDACS Score. If the patient also has: (1) EKG without new ischemic changes and (2) negative initial and 2-hour troponins, then this patient is safe for discharge to early outpatient follow-up investigation (or proceed to earlier inpatient testing). If EKG with ischemic changes or positive troponin, they are not low risk and require normal risk stratification. INPUTS: Age ?> 33 years Sex ?> 6 = Male Known coronary artery disease or >= risk factors ?> 0 = No Diaphoresis ?> 0 = No Pain radiates to arm, shoulder, neck, or jaw ?> 0 = No Pain occurred or worsened with inspiration ?> 0 = No Pain is reproduced by palpation ?> -6 = Yes Reexamination: Patient remained stable. No increased work of breathing. No altered mental status. Lab Data 01/03/24 12:54 01/03/24 12:54 Laboratory Results WBC 11.95 10^3/uL (3.29-11.43) H 01/03/24 12:54 RBC 4.78 10^6/uL (3.85-5.65) 01/03/24 12:54 Hgb 15.40 g/dL (11.27-16.99) 01/03/24 12:54 Hct 45.1 % (37-53) 01/03/24 12:54 MCV 94.4 fl (82-101) 01/03/24 12:54 MCH 32.2 pg (27-33) 01/03/24 12:54 MCHC 34.1 g/dL (30-55) 01/03/24 12:54 RDW 12.6 % (12.1-15.1) 01/03/24 12:54 Plt Count 201 10^3/cmm (157-399) 01/03/24 12:54 MPV 10.1 fL (7.4-10.4) 01/03/24 12:54 Neut % (Auto) 68.0 % 01/03/24 12:54 Lymph % (Auto) 24.6 % 01/03/24 12:54 Winn % (Auto) 5.5 % 01/03/24 12:54 Eos % (Auto) 1.2 % 01/03/24 12:54 Baso % (Auto) 0.4 % 01/03/24 12:54 Neut # (Auto) 8.13 10^3/uL (1.8-7.7) H 01/03/24 12:54 Lymph # (Auto) 2.9 10^3/uL (0.8-4.8) 01/03/24 12:54 Winn # (Auto) 0.7 10^3/uL (0.2-0.9) 01/03/24 12:54 Eos # (Auto) 0.1 10^3/uL (0.0-0.8) 01/03/24 12:54 Baso # (Auto) 0.1 10^3/uL (0.0-0.1) 01/03/24 12:54 Nucleated RBC % (auto) 0 % 01/03/24 12:54 Nucleated RBCs # 0.0 /100WBC 01/03/24 12:54 Sodium 138 mmol/L (136-145) 01/03/24 12:54 Potassium 3.5 mmol/L (3.5-5.1) 01/03/24 12:54 Chloride 103 mmol/L (98-107) 01/03/24 12:54 Carbon Dioxide 25 mmol/L (22-29) 01/03/24 12:54 Anion Gap 13.5 (5-19) 01/03/24 12:54 BUN 9 mg/dL (6-20) 01/03/24 12:54 Creatinine 1.0 mg/dL (0.7-1.2) 01/03/24 12:54 GFR Calculation 85.5 mL/min (90-130) L 01/03/24 12:54 Glucose 100 mg/dL (65-115) 01/03/24 12:54 Calculated Osmolality 285 mOsm/kg (285-295) 01/03/24 12:54 Calcium 8.8 mg/dL (8.5-10.5) 01/03/24 12:54 Total Bilirubin 0.2 mg/dL (0.15-1.2) 01/03/24 12:54 AST 24 U/L (0-40) 01/03/24 12:54 ALT 26 U/L (0-41) 01/03/24 12:54 Alkaline Phosphatase 92 U/L (40-130) 01/03/24 12:54 Troponin T Baseline < 6 ng/L (0-15) 01/03/24 12:54 Total Protein 7.1 g/dL (6.6-8.7) 01/03/24 12:54 Albumin 4.2 g/dL (3.5-5.2) 01/03/24 12:54 Globulin 2.9 g/dL (1.3-4.6) 01/03/24 12:54 XR interpretation done by ED provider, pending radiology final review Other Data Assessment and plan: -Toradol in the emergency room. - Discharged home - Discussed plan with patient. Answered any questions. - Evaluation and treatment of this problem were appropriate in the emergency setting. Discharge Plan Discharge Patient Disposition: Home Clinical Impression: Atypical chest pain Condition: Stable Prescriptions: New diclofenac potassium 50 mg tablet 50 mg PO BID PRN (Reason: pain) Qty: 20 0RF No Action Vimpat 200 mg tablet 200 mg PO BID Qty: 180 3RF promethazine-DM 6.25-15 mg/5 mL syrup 5 - 10 ml PO Q6H PRN (Reason: cough) Qty: 240 5RF doxycycline hyclate 100 mg capsule 100 mg PO BID Qty: 14 0RF prednisone 20 mg tablet 20 mg PO BID Qty: 10 0RF budesonide-formoterol [Symbicort] 160-4.5 mcg/actuation HFA aerosol inhaler 2 puff inhalation BID Qty: 10.2 5RF albuterol sulfate 2.5 mg /3 mL (0.083 %) solution for nebulization 2.5 mg inhalation QID PRN (Reason: shortness of breath or wheezing) Qty: 75 0RF (DME) compressor, for nebulizer Device See Rx Instructions .Route Qty: 1 0RF Rx Instructions: As directed naproxen 500 mg tablet 500 mg PO BID promethazine-DM 6.25-15 mg/5 mL syrup 7.5 ml PO Q6H PRN (Reason: cough) Qty: 240 0RF rosuvastatin [Crestor] 40 mg tablet 40 mg PO DAILY Qty: 30 5RF omeprazole 40 mg capsule,delayed release(DR/EC) 40 mg PO DAILY Qty: 30 5RF multivitamin Tablet 1 tab PO QAM Qty: 30 11RF loratadine 10 mg tablet 10 mg PO DAILY Qty: 30 5RF lactulose 10 gram/15 mL (15 mL) solution 10 g PO DAILY PRN (Reason: constipation) Qty: 750 3RF ketoconazole 2 % shampoo 1 applic TOPICAL Q14D PRN (Reason: itchy dry skin) Qty: 120 5RF hydrocortisone 2.5 % cream 1 applic TOPICAL DAILY PRN (Reason: apply for rectal pain) Qty: 30 2RF albuterol sulfate 90 mcg/actuation HFA aerosol inhaler 2 puff inhalation QID PRN (Reason: shortness of breath or wheezing) Qty: 6.7 5RF acetaminophen 500 mg tablet 500 mg PO Q6H PRN (Reason: fever or pain) Qty: 60 5RF ibuprofen 400 mg tablet 400 mg PO TID PRN (Reason: pain) 7 Days Qty: 21 5RF diphenhydramine HCl [Benadryl] 25 mg capsule 50 mg PO BID PRN (Reason: allergy symptoms) 7 Days Qty: 28 5RF trazodone 100 mg tablet 100 mg PO .q hs Qty: 30 2RF Rx Instructions: Take one tablet daily at bedtime risperidone 2 mg tablet 2 mg PO BID Qty: 60 2RF Rx Instructions: Take one tablet by mouth morning and night time escitalopram oxalate 10 mg tablet 10 mg PO DAILY Qty: 30 2RF Rx Instructions: Take one tablet by mouth every day ketoconazole 2 % cream 1 applic topical BID Qty: 15 0RF peg 3350-electrolytes [Golytely] 236-22.74-6.74 -5.86 gram recon soln 240 ml PO Q10M Qty: 4000 0RF Rx Instructions: until fecal effluent is clear mupirocin 2 % ointment 1 applic topical BID PRN (Reason: skin irritation) Qty: 22 2RF Discharge Orders: Discharge ED (Routine); Ordered 01/03/24 Ordered By: Shayy Pratt Referrals: Eduarda Uriarte FNP-C [Primary Care Provider] - (You have been screened and evaluated and felt safe for discharge. Health conditions do change or evolve sometimes and as such it is important that you follow up with your Primary Doctor to be re checked, 3-5 days is a general good time frame for follow up. 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
[2024-01-03 13:20] LABS: Alanine Aminotransferase 26 U/L (0-41); Albumin Level 4.2 g/dL (3.5-5.2); Alkaline Phosphatase 92 U/L (40-130); Anion Gap 13.5 (5-19); Aspartate Amino Transferase 24 U/L (0-40); Blood Urea Nitrogen 9 mg/dL (6-20); Calcium 8.8 mg/dL (8.5-10.5); Carbon Dioxide 25 mmol/L (22-29); Chloride 103 mmol/L (98-107); Creatinine Clr Calc Pharmacy 114.7497; Globulin 2.9 g/dL (1.3-4.6); Glomerular Filtration Rate 85.5 mL/min (90-130); Glucose 100 mg/dL (65-115); Osmolality Calculated 285 mOsm/kg (285-295); Potassium 3.5 mmol/L (3.5-5.1); Sodium 138 mmol/L (136-145); Total Bilirubin 0.2 mg/dL (0.15-1.2); Total Protein 7.1 g/dL (6.6-8.7); Troponin(5th) Baseline < 6 ng/L (0-15)
[2024-01-03] MEDS: ketorolac 30 mg/mL INJ IVP (13:38)
--- NOTE | 2024-01-03 13:41 | PC.PHAR ---
pt is from philip ramírez -medications entered are from the pts mar and tar the pts caregiver had on her phone
== END 2024-01-03 14:00 | disposition home or self-care (01) ==
PROVIDERS: Emergency Provider Emergency Medicine; PCP Nurse Practitioner Family
DX: R07.89 Other chest pain (principal); F17.210 Nicotine dependence, cigarettes, uncomplicated; E78.5 Hyperlipidemia, unspecified
CPT/HCPCS: 71045; 80053; 84484; 85025; 93005; 99285; J1885

== ENCOUNTER → 2024-01-18 10:11 | Outpatient (BNVA) | payer MEDICARE, OTHER, SELFPAY | PROVIDERS: PCP Nurse Practitioner Family; Visit Provider Nurse Practitioner Family | DX: E78.5 Hyperlipidemia, unspecified (principal) | CPT/HCPCS: 80053; 80061 ==

== ENCOUNTER 2024-01-19 15:52 | Outpatient (CLI) | payer MEDICARE, MEDICAID, SELFPAY ==
--- NOTE | 2024-01-19 16:45 | CT_ITS ---
WS: [id number] CT chest wo con [id number] HISTORY: J44.9 - Chronic obstructive pulmonary disease, unspecified TECHNIQUE: Axial imaging performed through the thorax. Coronal and sagittal reformats are submitted. All CT scans at [facility] use at least one of these dose optimization techniques: automated exposure control; mA and/or kV adjustment per patient size (includes targeted exams where dose is mat ched to clinical indication); or iterative reconstruction. CONTRAST: Omnipaque 350; 100 mL IV. DLP: 473.64 mGy.cm COMPARISON: None available. Lungs and central airway: Lungs are mildly hyperexpanded. No dense areas of consolidation, mass or no dule. Bilateral, upper and lower lung field peripheral branching irregular opacifications. Consistent with tree-in-bud airspace disease. There are a few areas of more nodular component associated with t he tree-in-bud airspace disease. No bronchiectasis. Pleura: Normal. No pleural effusion. Heart and pericardium: Normal size heart with no pericardial effusion. Mediastinum and ben: Small mediastinal and hilar lymph nodes. Number of lymph nodes is slightly incr eased. Largest lymph node RIGHT paratracheal measuring 10 mm. Vessels: Normal size aortic and pulmonary artery. No coronary artery calcifications. Chest wall and lower neck: No soft tissue masses. Upper abdomen: Small hiatal hernia. No adrenal mass. Osseous structures: No destructive process. IMPRESSION: 1. Mild bilateral, diffuse tree-in-bud airspace disease. This can be seen with infection such as TB, MAC, bacterial or fungal. Hypersensitivity pneumonia should also be included. 2. No dense areas of focal pneumonia or consolidation. 3. Mildly prominent mediastinal and hilar lymph nodes. May be reactive.
== END 2024-01-19 15:53 | disposition home or self-care (01) ==
LOC: RAD 15:52
PROVIDERS: PCP Nurse Practitioner Family; Visit Provider Nurse Practitioner Family
DX: J44.9 Chronic obstructive pulmonary disease, unspecified (principal); R07.9 Chest pain, unspecified; F17.200 Nicotine dependence, unspecified, uncomplicated; J98.4 Other disorders of lung; R59.0 Localized enlarged lymph nodes
CPT/HCPCS: 71250

== ENCOUNTER → 2024-01-31 13:29 | Outpatient (BNVA) | payer MEDICARE, MEDICAID, SELFPAY | PROVIDERS: PCP Nurse Practitioner Family; Visit Provider Specialist | DX: G40.309 Generalized idiopathic epilepsy and epileptic syndromes, not intractable, without status epilepticus (principal); F79 Unspecified intellectual disabilities; G56.11 Other lesions of median nerve, right upper limb; F17.200 Nicotine dependence, unspecified, uncomplicated; G40.109 Localization-related (focal) (partial) symptomatic epilepsy and epileptic syndromes with simple partial seizures, not intractable, without status epilepticus | CPT/HCPCS: 99213 ==

== ENCOUNTER → 2024-02-23 13:10 | Outpatient (BNVA) | payer MEDICARE, MEDICAID, SELFPAY | PROVIDERS: PCP Nurse Practitioner Family; Visit Provider Specialist | DX: G56.11 Other lesions of median nerve, right upper limb (principal) | CPT/HCPCS: 95910 ==

== ENCOUNTER → 2024-04-17 15:09 | Outpatient (BNVA) | payer MEDICARE, MEDICAID, SELFPAY | PROVIDERS: PCP Nurse Practitioner Family; Visit Provider Nurse Practitioner Family | DX: E78.5 Hyperlipidemia, unspecified (principal); M79.10 Myalgia, unspecified site | CPT/HCPCS: 80053; 80061; 84443; 85025 ==

== ENCOUNTER 2024-06-29 07:57 | Outpatient (CLI) | payer MEDICARE, MEDICAID, SELFPAY ==
--- NOTE | 2024-06-29 08:01 | CTR_ITS ---
PROCEDURE INFORMATION: Exam: CT Chest Without Contrast; Diagnostic Exam date and time: 06/29/2024 8:02 AM Age: 34 years old Clinical indication: Condition or disease; Lung condition and disease; Copd; Additional info: Copd/localized enlarged lymph nodes/tobacco use TECHNIQUE: Imaging protocol: Diagnostic computed tomography of the chest without contrast. Radiation optimization: All CT scans at this facility use at least one of these dose optimization techniques: automated exposure control; mA and/or kV adjustment per patient size (includes targeted exams where dose is matched to clinical indication); or iterative reconstruction. COMPARISON: CT chest [facility] [id number] 01/19/2024 4:02 PM RADIATION DOSE METRICS: Total DLP (mGy-cm): 515.01 FINDINGS: Lungs: [id number] apical predominant paraseptal emphysema, unchanged. Mild scattered subpleural interstitial reticulation, most prominently in the right lung base appears to have mildly progressed from the comparison. No appreciable lung nodules or infiltrates. Pleural spaces: Unremarkable. No pneumothorax. No pleural effusion. Heart: Unremarkable. No cardiomegaly. No pericardial effusion. Coronary arteries: No appreciable coronary vessel atherosclerosis.. Lymph nodes: Unremarkable. No enlarged lymph nodes. Vasculature: See Coronary arteries finding. Stomach: Moderate thickening of the gastric mucosa, component of which is due to decompression. Intestine: Mild fibrofatty appearance of the proximal descending colon, suggestive of prior colitis. Bones/joints: Unremarkable. No acute fracture. Soft tissues: Unremarkable. CT/CT chest [facility] [id number] IMPRESSION: 1. Mild scattered subpleural interstitial reticulation, most prominently in the right lung base appears to have mildly progressed from the comparison. No appreciable lung nodules or infiltrates. Nonspecific finding. May indicate an atypical infection versus developing interstitial lung disease. Recommend imaging follow-up to resolution. 2. [id number] apical predominant paraseptal emphysema, unchanged.
== END 2024-06-29 07:58 | disposition home or self-care (01) ==
LOC: RAD 07:57
PROVIDERS: PCP Nurse Practitioner Family; Visit Provider Internal Medicine
DX: R91.8 Other nonspecific abnormal finding of lung field (principal); J44.9 Chronic obstructive pulmonary disease, unspecified; R59.0 Localized enlarged lymph nodes; Z72.0 Tobacco use; J43.9 Emphysema, unspecified
CPT/HCPCS: 71250

== ENCOUNTER → 2024-07-03 14:52 | Outpatient (BNVA) | payer MEDICARE, MEDICAID, SELFPAY | PROVIDERS: PCP Nurse Practitioner Family; Visit Provider Nurse Practitioner Family | DX: M79.10 Myalgia, unspecified site (principal); K21.9 Gastro-esophageal reflux disease without esophagitis; E78.5 Hyperlipidemia, unspecified | CPT/HCPCS: 80053; 80061; 84443; 85025 ==

== ENCOUNTER 2024-08-16 15:35 | Emergency (ER) | payer MEDICARE, MEDICAID, SELFPAY ==
[2024-08-16 15:56] VITALS: BP 147/81; PULSE 74; TEMP 36.4; O2SAT 97; BMI 27.8
--- NOTE | 2024-08-16 17:38 | W.ED.ANIMALB ---
HPI - Animal Bite General: Chief Complaint: Animal Bite Stated Complaint: nose injury (dog bite) Time Seen by Provider: 08/16/24 16:39 Source: patient Mode of arrival: ambulatory Limitations: no limitations History of Present Illness: 34yo male here with friend for evaluation of a dog bite to the left nose that occurred this afternoon. Patient reported is his own dog and he has not up-to-date on immunizations. Patient reports that his tetanus is up-to-date. He denies any other injury or concern at this time. Associated symptoms: Deny chills or fever(s) Related Data Previous Rx's Medication Instructions Recorded mupirocin 2 % topical ointment 1 applic topical BID PRN skin 06/03/23 irritation #22 grams lactulose 10 gram/15 mL (15 mL) 10 g (15 mL) PO DAILY PRN 09/21/23 oral solution constipation #750 mL compressor, for nebulizer #1 ea 10/26/23 albuterol sulfate 2.5 mg/3 mL 2.5 mg (3 mL) inhalation BID 01/06/24 (0.083 %) solution for nebulization shortness of breath or wheezing #75 mL ibuprofen 200 mg tablet 600 mg (3 x 200 mg) PO TID PRN 01/18/24 Pain #90 tabs ketoconazole 2 % topical cream 1 applic topical BID 3 weeks #30 05/30/24 grams acetaminophen 500 mg tablet 500 mg PO Q6H PRN fever or pain 07/03/24 #60 tabs albuterol sulfate 90 mcg/actuation 2 puff inhalation QID PRN 07/03/24 aerosol inhaler shortness of breath or wheezing #6.7 grams budesonide-formoterol HFA 160 2 puff inhalation BID #10.2 grams 07/03/24 mcg-4.5 mcg/actuation aerosol inhaler (Symbicort) famotidine 40 mg tablet 40 mg PO BEDTIME@20 #30 tabs 07/03/24 hydrocortisone 2.5 % topical cream 1 applic topical DAILY PRN unknown 07/03/24 #20 grams lacosamide 200 mg tablet 200 mg PO BID #180 tabs 07/03/24 loratadine 10 mg tablet 10 mg PO DAILY@08 #30 tabs 07/03/24 multivitamin 1 tab PO DAILY@08 #30 tabs 07/03/24 omeprazole 40 mg capsule,delayed 40 mg PO DAILY #30 caps 07/03/24 release rosuvastatin 40 mg tablet (Crestor) 40 mg PO DAILY@08 #30 tabs 07/03/24 escitalopram oxalate 10 mg tablet 10 mg PO .q am #30 tabs 08/13/24 risperidone 2 mg tablet 2 mg PO .q am #30 tabs 08/13/24 risperidone 3 mg tablet 3 mg PO .q hs #30 tabs 08/13/24 amoxicillin 875 mg-potassium 1 tab PO BID #10 tabs 08/16/24 clavulanate 125 mg tablet Allergies Allergy/AdvReac Type Severity Reaction Status Date / Time adhesive tape Allergy ALGY-Rash Verified 08/16/24 16:00 aripiprazole [From Abilify] Allergy ALGY-Hives Verified 08/16/24 16:00 Review of Systems Const: Denies: fever(s) or chills Skin/Breast: Reports: other (bite wound nose) PFS ED PFSH: Medical History Smoker Bronchitis H/O retained foreign body fully removed (10/13/20) FB rectum Seborrheic dermatitis of scalp Acid reflux Hemorrhoids Bipolar affective, mixed Generalized epilepsy GERD (gastroesophageal reflux disease) Dyslipidemia Surgical History Status post colonoscopy Family History Denies family history of Anesthesia complication Bleeding disorder Social History Smoking and tobacco/nicotine status: current every day tobacco/nicotine user (pack a day) cigarettes Packs smoked per day: 1 Years cigarettes smoked: 24 Second hand smoke exposure: Yes Alcohol intake: never Substance/Drug Use: never Adopted: Yes Caregiver/support person: Yes Lives independently: No Household members: family and caregiver Housing: House Marital status: Single Number of children: 0 Highest education level completed: 9th Grade Education level details: Till 9th Grade Current occupational status: employed Current occupation: [employer] Pets and animals: Yes Do you think of yourself as: Straight/Heterosexual Current gender identity: Male Physical Exam Const: COMMON NORMALS: no acute distress and patient oriented x3 GENERAL APPEARANCE: cooperative OTHER: Patient is sitting upright on the stretcher no acute distress. He is able to give history with no difficulty. He is interactive with exam appropriately. Friend is at bedside HENMT: COMMON NORMALS: normocephalic and Normal nasal mucous membranes and turbinates present HEAD & SCALP: normocephalic NOSE: Normal nasal mucous membranes and turbinates present, Abnormal external nose present nasal abrasion (left naris) and Other nasal findings present (no septal hematoma); no Nasal discharge present and no Foreign body present in naris Neck/C-Spine: COMMON NORMALS: full ROM Chest: CHEST: Yes Symmetrical chest wall rise Resp: COMMON NORMALS: normal respiratory effort Extremity: COMMON NORMALS: full ROM Neuro: COMMON NORMALS: patient oriented x3 Course Vital Signs: Vital signs: Vital Signs Temperature 97.5 F L 08/16/24 15:56 Pulse Rate 74 08/16/24 15:56 Blood Pressure 147/81 08/16/24 15:56 Pulse Oximetry 97 08/16/24 15:56 Oxygen Delivery Me thod Room Air 08/16/24 15:56 MDM - Animal Bite Medical Decision Making 34yo male here with friend for evaluation of a dog bite to the left side of his nose that occurred earlier today. Patient reports that it is his own dog and the dog is not up-to-date on immunizations. Reports patient is up-to-date on tetanus. Denies any other injury or concern at this time. Patient is nontoxic in appearance. Vital signs are stable. Abrasion with possible shallow puncture of the left lateral naris. There is no active bleeding at this time. There is no laceration for repair. Given that the dog is the patient's personal animal, he can be monitored for the appropriate observation period for any indication of rabies. Discussed with patient that if the dog does show signs of rabies, he would need to have the rabies prophylaxis at that time. No septal hematoma noted on exam. Discussed with patient no repair is indicated at this time, but we will begin antibiotics. Patient did receive Augmentin while in the emergency department and a prescription was sent to his pharmacy. Recommend washing with soap and water, then applying antibiotic ointment. Advised to monitor closely for signs of infection. Recommend he follow-up with primary care on Jabari for recheck, sooner if needed. Advised return to the emergency department if any rapid worsening symptoms, concern for infection, onset of fever/chills, and as needed. Patient states understanding and has no further questions or concerns at this time. Differential Diagnosis Likely dog bite No radiology studies performed this visit Discharge Plan Discharge Patient Disposition: Home Clinical Impression: Dog bite Condition: Stable Prescriptions: New amoxicillin-pot clavulanate 875-125 mg tablet 1 tab PO BID Qty: 10 0RF No Action (DME) compressor, for nebulizer Device See Rx Instructions .Route Qty: 1 0RF Rx Instructions: As directed albuterol sulfate 2.5 mg /3 mL (0.083 %) solution for nebulization 2.5 mg inhalation BID Qty: 75 5RF risperidone 3 mg tablet 3 mg PO .q hs Qty: 30 1RF Rx Instructions: Take one tablet daily at bedtime; stop 2 mg bedtime dose risperidone 2 mg tablet 2 mg PO .q am Qty: 30 1RF Rx Instructions: Take one tablet daily in the morning escitalopram oxalate 10 mg tablet 10 mg PO .q am Qty: 30 1RF Rx Instructions: Take one tablet by mouth every morning ketoconazole 2 % cream 1 applic topical BID 21 Days Qty: 30 0RF Rx Instructions: large area groin lactulose 10 gram/15 mL (15 mL) solution 10 g PO DAILY PRN (Reason: constipation) Qty: 750 3RF ibuprofen 200 mg tablet 600 mg PO TID PRN (Reason: Pain) Qty: 90 2RF Crestor 40 mg tablet 40 mg PO DAILY@08 Qty: 30 5RF omeprazole 40 mg capsule,delayed release(DR/EC) 40 mg PO DAILY Qty: 30 5RF multivitamin Tablet 1 tab PO DAILY@08 Qty: 30 5RF loratadine 10 mg tablet 10 mg PO DAILY@08 Qty: 30 5RF hydrocortisone 2.5 % cream 1 applic TOPICAL DAILY PRN (Reason: unknown) Qty: 20 5RF famotidine 40 mg tablet 40 mg PO BEDTIME@20 Qty: 30 5RF Symbicort 160-4.5 mcg/actuation HFA aerosol inhaler 2 puff inhalation BID Qty: 10.2 5RF albuterol sulfate 90 mcg/actuation HFA aerosol inhaler 2 puff inhalation QID PRN (Reason: shortness of breath or wheezing) Qty: 6.7 5RF acetaminophen 500 mg tablet 500 mg PO Q6H PRN (Reason: fever or pain) Qty: 60 5RF mupirocin 2 % ointment 1 applic topical BID PRN (Reason: skin irritation) Qty: 22 2RF lacosamide 200 mg tablet 200 mg PO BID Qty: 180 1RF Discharge Orders: Discharge ED (Routine); Ordered 08/16/24 Ordered By: Conrad Cox Referrals: dEuarda Uriarte FNP-C [Primary Care Provider] - Discharge Diet: Usual diet Discharge Activity: Resume usual activity Patient Instructions: Animal Bite (ED), Pain Management Activity Restrictions/Additional Instructions: Augmentin has been sent to your pharmacy to help prevent infection from the dog bite Wash the wound with soap and water, then apply antibiotic ointment Follow-up with primary care on Tuesday for wound recheck, sooner if needed Return to the emergency department if any further injury, concern for infection, and as needed 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
[2024-08-16] MEDS: amoxicillin-clav 875-125 mg Tablet 1 TAB PO (18:07)
[2024-08-16 18:08] VITALS: BP 123/84; PULSE 71; O2SAT 98
== END 2024-08-16 18:09 | disposition home or self-care (01) ==
PROVIDERS: Emergency Provider Nurse Practitioner; PCP Nurse Practitioner Family
DX: S01.25XA Open bite of nose, initial encounter (principal); W54.0XXA Bitten by dog, initial encounter; F17.210 Nicotine dependence, cigarettes, uncomplicated; E78.5 Hyperlipidemia, unspecified
CPT/HCPCS: 99283

== ENCOUNTER → 2024-11-29 11:10 | Outpatient (BNVA) | payer MEDICARE, MEDICAID, SELFPAY | PROVIDERS: PCP Nurse Practitioner Family; Visit Provider Nurse Practitioner Family | DX: E78.5 Hyperlipidemia, unspecified (principal) | CPT/HCPCS: 80053; 80061; 85007; 85027 ==

== ENCOUNTER → 2025-03-14 11:44 | Outpatient (BNVA) | payer MEDICARE, SELFPAY | PROVIDERS: PCP Nurse Practitioner Family; Visit Provider Nurse Practitioner Family | DX: J02.9 Acute pharyngitis, unspecified (principal) | CPT/HCPCS: 87071; 87880 ==

== ENCOUNTER → 2025-04-02 12:01 | Outpatient (BNVA) | payer MEDICARE, SELFPAY | PROVIDERS: PCP Nurse Practitioner Family; Visit Provider Nurse Practitioner Family | DX: Z11.1 Encounter for screening for respiratory tuberculosis (principal); E78.5 Hyperlipidemia, unspecified | CPT/HCPCS: 71046; 80053; 83036; 84443; 85025 ==

== ENCOUNTER → 2025-04-05 12:01 | Outpatient (BNVA) | payer MEDICARE, SELFPAY | PROVIDERS: PCP Nurse Practitioner Family; Visit Provider Nurse Practitioner Family | DX: D72.829 Elevated white blood cell count, unspecified (principal) | CPT/HCPCS: 85025 ==

== ENCOUNTER 2025-04-18 09:07 | Oncology outpatient (recurring) (ONCR) | payer OTHER, MEDICAID, SELFPAY ==
--- NOTE | 2025-04-18 09:48 | XR_ITS ---
WS: [id number] Chest 2 views, 04/18/2025 Clinical Data: elevated white blood cell Comparison: Two-view chest, 04/02/2025 Findings: No nodules, masses or effusions are seen. The heart is normal. The pulmonary vascularity is not increased. No pneumonia or pneumothorax is seen. XR/XR chest 2V* [id number] Impression: Negative chest.
[2025-04-18 09:51] LABS: Hematocrit 47.0 % (37-53); Hemoglobin 16.40 g/dL (11.27-16.99); Mean Corpuscular HGB Conc 34.9 g/dL (30-55); Mean Corpuscular Hemoglobin 32.5 pg (27-33); Mean Corpuscular Volume 93.1 fl (82-101); Nucleated Red Blood Cells % 0 %; Platelet Count 206 10^3/cmm (157-399); Red Blood Count 5.05 10^6/uL (3.85-5.65); White Blood Count 18.12 10^3/uL (3.29-11.43)
[2025-04-18 10:08] LABS: Alanine Aminotransferase 37 U/L (0-41); Albumin Level 4.3 g/dL (3.5-5.2); Alkaline Phosphatase 137 U/L (40-130); Anion Gap 17.3 (5-19); Aspartate Amino Transferase 27 U/L (0-40); Blood Urea Nitrogen 7 mg/dL (6-20); Calcium 9.6 mg/dL (8.5-10.5); Carbon Dioxide 23 mmol/L (22-29); Chloride 103 mmol/L (98-107); Creatinine Clr Calc Pharmacy 136.8653; Globulin 3.4 g/dL (1.3-4.6); Glucose 91 mg/dL (65-115); Osmolality Calculated 286 mOsm/kg (285-295); Potassium 4.3 mmol/L (3.5-5.1); Sodium 139 mmol/L (136-145); Total Protein 7.7 g/dL (6.6-8.7); Uric Acid 4.6 mg/dL (3.4-7.0)
[2025-04-19 15:55] LABS: Leukemia Profile (BBPL) See Report
== END 2025-04-25 23:59 | disposition home or self-care (01) ==
PROVIDERS: PCP Nurse Practitioner Family; Visit Provider Internal Medicine
DX: D72.829 Elevated white blood cell count, unspecified (principal); F17.210 Nicotine dependence, cigarettes, uncomplicated; R56.9 Unspecified convulsions; E78.5 Hyperlipidemia, unspecified; J44.9 Chronic obstructive pulmonary disease, unspecified; F31.9 Bipolar disorder, unspecified; Z71.6 Tobacco abuse counseling
CPT/HCPCS: 36415; 71046; 80053; 83615; 84550; 85025; 88184; 88185; 99204

== ENCOUNTER 2025-04-30 22:47 | Emergency (ER) | payer OTHER, MEDICAID, SELFPAY ==
[2025-04-30 23:00] VITALS: BP 120/73; PULSE 67; RESP 17; TEMP 36.5; O2SAT 97; BMI 30.7
--- NOTE | 2025-04-30 23:12 | ED_ITS ---
HPI - Fall General: Chief Complaint: Fall Stated Complaint: Back and Head Injury Time Seen by Provider: 04/30/25 23:03 History of Present Illness: Patient comes emergency department with head pain and back pain. States he had a coughing fit that caused him to pass out and fall backwards off of his deck. States it is about a 4 foot drop. States he landed on the ground on his back hitting his head. On physical exam he has no contusions, abrasions, or other external signs of injury on his back or head. He has no midline C, T, or L- spine tenderness to palpation. Neuroexam is grossly intact. Will check CT head, XR lumbar spine, and reassess. Related Data Home Medications ?Medication ?Instructions ?Recorded ?Confirmed arformoterol 15 mcg/2 mL solution 2 ml inhalation BID 12/18/24 04/18/25 for nebulization budesonide 0.25 mg/2 mL suspension 0.25 mg inhalation BID 12/18/24 04/18/25 for nebulization sodium chloride 0.65 % nasal spray 1 spray intranasal Q2H PRN 12/18/24 04/18/25 aerosol sodium chloride 0.65 % nasal spray 2 spray intranasal Q2H 12/18/24 04/18/25 aerosol tiotropium bromide 2.5 2 puff inhalation DAILY 11/2504/18/25 mcg/actuation mist for inhalation Previous Rx's ?Medication ?Instructions ?Recorded compressor, for nebulizer #1 ea 10/26/23 albuterol sulfate 2.5 mg/3 mL 2.5 mg (3 mL) inhalation BID 01/06/24 (0.083 %) solution for nebulization shortness of breat h or wheezing #75 mL ibuprofen 200 mg tablet 600 mg (3 x 200 mg) PO TID P RN 01/18/24 Pain #90 tabs ketoconazole 2 % topical cream 1 applic topical BID 3 weeks #30 05/30/24 grams acetaminophen 500 mg tablet 500 mg PO Q6H PRN fever or pain 11/29/24 #60 tabs albuterol sulfate 90 mcg/actuation 2 puff inhalation Q ID PRN 11/29/24 aerosol inhaler shortness of breath or wheez ing #6.7 grams budesonide-formoterol HFA 160 2 puff inhalation BID #1 0.2 grams 11/29/24 mcg-4.5 mcg/actuation aerosol inhaler (Symbicort) loratadine 10 mg tablet 10 mg PO DAILY@08 #30 tabs 0 11/29/24 multivitamin 1 tab PO DAILY@08 #30 tabs 0 11/29/24 nebulizer accessories #1 ea 11/29/24 rosuvastatin 40 mg tablet (Crestor) 40 mg PO DAILY@08 #30 tabs 11/29/24 lacosamide 200 mg tablet 200 mg PO BID #180 tabs 12/25 01/18 diphenhydramine HCl 25 mg capsule 25 mg PO .HS allergy symptoms #7 04/02/25 (Benadryl) caps prednisone 20 mg tablet 20 mg PO DAILY #3 tabs 04/02 escitalopram oxalate 10 mg tablet 10 mg PO .q am #30 t abs 04/05/25 melatonin 3 mg tablet 3 mg PO .q hs PRN insomnia # 30 tabs 04/05/25 risperidone 2 mg tablet 2 mg PO .q am #30 tabs 04/05 risperidone 3 mg tablet 3 mg PO .q hs #30 tabs 04/05 pantoprazole 40 mg tablet,delayed 40 mg PO BID #60 tab s 04/16/25 release (Protonix) Allergies Allergy/AdvReac Type Severity Reaction Status Date / Time adhesive tape Allergy ALGY-Rash Verified 04/18/25 09:12 aripiprazole (From Abilify) Allergy ALGY-Hives Verified 04/18/25 09:12 Review of Systems Musc: Reports: other (Headache, low back pain) PFS ED PFSH: Medical History (Updated 05/01/25 @ 00:00 by Thomas Santana MD) Psychiatric care Smoker Bronchitis H/O retained foreign body fully removed (10/13/20) FB rectum Seborrheic dermatitis of scalp Acid reflux Hemorrhoids Bipolar affective, mixed Generalized epilepsy GERD (gastroesophageal reflux disease) Dyslipidemia Surgical History Status post colonoscopy Family History Denies family history of Anesthesia complication Bleeding disorder Social History Smoking and tobacco/nicotine status: current every day tobacco/nicotine user (pack a day) cigarettes Packs smoked per day: 1 Years cigarettes smoked: 24 Second hand smoke exposure: Yes Alcohol intake: never Substance/Drug Use: never Adopted: Yes Caregiver/support person: Yes Lives independently: No Household members: family and caregiver Housing: House Marital status: Single Number of children: 0 Highest education level completed: 9th Grade Education level details: Till 9th Grade Current occupational status: employed Current occupation: [employer] Pets and animals: Yes Do you think of yourself as: Straight/Heterosexual Current gender identity: Male Physical Exam Const: COMMON NORMALS: no acute distress, patient oriented x3, healthy appearing and alert HENMT: COMMON NORMALS: normocephalic and atraumatic HEAD & SCALP: normocephalic and atraumatic Eye: COMMON NORMALS: Equal, round and reactive pupils present and EOMs intact bilaterally PUPIL: Yes Equal, round and reactive pupils present Neck/C-Spine: COMMON NORMALS: full ROM and supple Resp: COMMON NORMALS: normal respiratory effort, No retractions and No use of accessory muscles Cardio: COMMON NORMALS: regular rate and regular rhythm RATE: regular rate RHYTHM: regular rhythm GI: COMMON NORMALS: Normal to inspection, nondistended, normoactive bowel sounds present, Soft to palpation and non-tender PALPATION: Yes Soft to palpation Back/Pelvis: COMMON NORMALS: thoracic and lumbar spine normal to inspection and no thoracic nor lumbar tenderness Extremity: COMMON NORMALS: normal to inspection and full ROM Neuro: COMMON NORMALS: patient oriented x3 SENSORIUM/ORIENTATION: Yes alert Skin: COMMON NORMALS: no rashes or lesions noted and no wounds GENERAL SKIN EXAM: no rashes or lesions noted Course Vital Signs: Vital signs: Vital Signs Temperature 97.7 F 04/30/25 23:00 Pulse Rate 65 04/30/25 23:18 Respiratory Rate 17 04/30/25 23:00 Blood Pressure 124/87 04/30/25 23:18 Pulse Oximetry 97 04/30/25 23:00 Oxygen Delivery Me thod Room Air 04/30/25 23:18 MDM - Fall Medical Decision Making On reassessment I talked with the patient about the test results. His XR lumbar spine and CT head are both unremarkable. Will discharge at this time with precautions to return for worsening or changing symptoms. Lab Data Radiology Impressions Head CT 04/30/25 23:12 IMPRESSION: No acute intracranial abnormality. Lumbar Spine X-Ray 04/30/25 23:12 IMPRESSION: No acute findings. All radiology interpretation(s) finalized by discharge Discharge Plan Discharge Patient Disposition: Home Clinical Impression: Contusion Condition: Stable Prescriptions: No Action (DME) compressor, for nebulizer Device See Rx Instructions .Route Qty: 1 0RF Rx Instructions: As directed albuterol sulfate 2.5 mg /3 mL (0.083 %) solution for nebulization 2.5 mg inhalation BID Qty: 75 5RF ketoconazole 2 % cream 1 applic topical BID 21 Days Qty: 30 0RF Rx Instructions: large area groin Crestor 40 mg tablet 40 mg PO DAILY@08 Qty: 30 5RF multivitamin Tablet 1 tab PO DAILY@08 Qty: 30 5RF loratadine 10 mg tablet 10 mg PO DAILY@08 Qty: 30 5RF Symbicort 160-4.5 mcg/actuation HFA aerosol inhaler 2 puff inhalation BID Qty: 10.2 5RF albuterol sulfate 90 mcg/actuation HFA aerosol inhaler 2 puff inhalation QID PRN (Reason: shortness of breath or wheezing) Qty: 6.7 5RF acetaminophen 500 mg tablet 500 mg PO Q6H PRN (Reason: fever or pain) Qty: 60 5RF (DME) nebulizer accessories Misc See Rx Instructions .Route Qty: 1 0RF Rx Instructions: MASK and tubing prednisone 20 mg tablet 20 mg PO DAILY Qty: 3 0RF diphenhydramine HCl [Benadryl] 25 mg capsule 25 mg PO .HS Qty: 7 0RF ibuprofen 200 mg tablet 600 mg PO TID PRN (Reason: Pain) Qty: 90 2RF budesonide 0.25 mg/2 mL suspension for nebulization 0.25 mg inhalation BID sodium chloride 0.65 % aerosol,spray 2 spray intranasal Q2H sodium chloride 0.65 % aerosol,spray 1 spray intranasal Q2H PRN arformoterol 15 mcg/2 mL solution for nebulization 2 ml inhalation BID tiotropium bromide 2.5 mcg/actuation mist 2 puff inhalation DAILY escitalopram oxalate 10 mg tablet 10 mg PO .q am Qty: 30 3RF Rx Instructions: Take one tablet by mouth every morning melatonin 3 mg tablet 3 mg PO .q hs PRN (Reason: insomnia) Qty: 30 3RF Rx Instructions: Take one tablet daily at bedtime, if needed for insomnia risperidone 2 mg tablet 2 mg PO .q am Qty: 30 3RF Rx Instructions: Take one tablet daily in the morning risperidone 3 mg tablet 3 mg PO .q hs Qty: 30 3RF Rx Instructions: Take one tablet daily at bedtime lacosamide 200 mg tablet 200 mg PO BID Qty: 180 1RF pantoprazole [Protonix] 40 mg tablet,delayed release (DR/EC) 40 mg PO BID Qty: 60 5RF Discharge Orders: Discharge ED (Routine); Ordered 05/01/25 Ordered By: Thomas Santana Referrals: Eduarda Uriarte FNP-C [Primary Care Provider, Family Practice] Patient Instructions: Patient Portal & Isaac Instructions Print Language: French Coding Level of Care Code ED Manufacturing Support Engineer for Gustabo Nicole
--- NOTE | 2025-04-30 23:12 | XRR_ITS ---
PROCEDURE INFORMATION: Exam: XR Lumbosacral Spine Exam date and time: 04/30/2025 11:29 PM Age: 35 years old Clinical indication: Injury or trauma; Fall; Blunt trauma (contusions or hematomas) TECHNIQUE: Imaging protocol: Radiologic exam of the lumbosacral spine. Views: 2 or 3 views. COMPARISON: No relevant prior studies available. FINDINGS: Bones/joints: Normal. No acute fracture. Normal alignment. Soft tissues: Unremarkable. XR/XR lumbar spine 2-3V* [id number] IMPRESSION: No acute findings.
--- NOTE | 2025-04-30 23:12 | CTR_ITS ---
PROCEDURE INFORMATION: Exam: CT Head Without Contrast Exam date and time: 04/30/2025 11:27 PM Age: 35 years old Clinical indication: Injury or trauma; Fall; Concussion/head injury; With loss of consciousness; Loss of consciousness for 30 minutes or less TECHNIQUE: Imaging protocol: Computed tomography of the head without contrast. Radiation optimization: All CT scans at this facility use at least one of these dose optimization techniques: automated exposure control; mA and/or kV adjustment per patient size (includes targeted exams where dose is matched to clinical indication); or iterative reconstruction. COMPARISON: No relevant prior studies available. RADIATION DOSE METRICS: Total DLP (mGy-cm): 1062.78 FINDINGS: Brain: Normal. No hemorrhage. Unremarkable white matter. No mass effect. Cerebral ventricles: No ventriculomegaly. Paranasal sinuses: Visualized sinuses are unremarkable. No fluid levels. Mastoid air cells: Visualized mastoid air cells are well aerated. Bones: Unremarkable. No acute fracture. Soft tissues: Unremarkable. CT/CT head wo con* [id number] IMPRESSION: No acute intracranial abnormality.
[2025-04-30 23:18] VITALS: BP 124/87; PULSE 65
== END 2025-05-01 00:07 | disposition home or self-care (01) ==
PROVIDERS: Emergency Provider Emergency Medicine; PCP Nurse Practitioner Family
DX: R51.9 Headache, unspecified (principal); M54.9 Dorsalgia, unspecified; Z91.81 History of falling; F17.210 Nicotine dependence, cigarettes, uncomplicated; E78.5 Hyperlipidemia, unspecified
CPT/HCPCS: 70450; 72100; 99284

== ENCOUNTER 2025-05-08 11:57 | Oncology outpatient (recurring) (ONCR) | payer OTHER, MEDICAID, SELFPAY ==
--- NOTE | 2025-05-01 09:15 | US_ITS ---
WS: [id number] Complete ABDOMINAL ULTRASOUND HISTORY: Elevated white blood cell COMPARISON: None available. Liver: 14.4 cm in length. Normal size liver and echogenicity. No bile duct dilatation or mass. Portal Vein: Normal hepatopetal flow with monophasic waveform. Gallbladder: Normally distended gallbladder with no stones or wall thickening. CBD: 0.3 cm Pancreas: Partially obscured. The body is normal. Right kidney: 10.6 cm x 5.6 x 4.8 cm. Cortex:1.6 cm. Normal size and echogenicity. No hydronephrosis or mass. Left kidney: 11.7 cm x 4.9 cm x 5.7 cm. Cortex: 2.3 cm. Normal size and echogenicity. No hydronephrosis or mass. Spleen: 9.5 cm. Normal size and echogenicity. Aorta and IVC: Unremarkable abdominal aorta and IVC. US/US abdomen complete* [id number] Impression: Normal complete abdomen ultrasound.
[2025-05-03 23:25] LABS: BCR ABL1 (IS) 0.000 (0.000); BCR ABL1/ALB1 % 0.000 (0.000); P190 BCR ALB1 NOT DETECTED; P190 BCR ALB1 Yes Test Yes; P210 BCR ALB1 NOT DETECTED; P210 BCR ALB1 Yes Test Yes; Source blood
== END 2025-05-26 23:59 | disposition home or self-care (01) ==
PROVIDERS: PCP Nurse Practitioner Family; Visit Provider Internal Medicine
DX: D72.829 Elevated white blood cell count, unspecified (principal); F17.210 Nicotine dependence, cigarettes, uncomplicated
CPT/HCPCS: 36415; 76700; 81206; 81207; 99213

== ENCOUNTER → 2025-05-22 13:46 | Outpatient (BNVA) | payer MEDICARE, SELFPAY | PROVIDERS: PCP Nurse Practitioner Family; Referring Provider Nurse Practitioner Family; Visit Provider Specialist | DX: G40.109 Localization-related (focal) (partial) symptomatic epilepsy and epileptic syndromes with simple partial seizures, not intractable, without status epilepticus (principal); G56.11 Other lesions of median nerve, right upper limb | CPT/HCPCS: 99214 ==

== ENCOUNTER → 2025-08-26 11:03 | Outpatient (BNVA) | payer MEDICARE, MEDICAID, SELFPAY | PROVIDERS: PCP Nurse Practitioner Family; Visit Provider Nurse Practitioner Family | DX: M79.10 Myalgia, unspecified site (principal); E78.5 Hyperlipidemia, unspecified | CPT/HCPCS: 80053; 80061; 84443; 85025 ==